=== PATIENT | male | born 1965 | race Caucasian/White ===

== ENCOUNTER 2021-10-04 15:56 | Inpatient (IN) ==
--- NOTE | 2021-10-04 16:20 | Emergency Department Note ---
History of Present Illness General Chief complaint: Abdominal Pain Stated complaint: ABDOMINAL PAIN Time Seen by Provider: 10/04/21 16:10 Source: patient Mode of arrival: ambulatory Limitations: no limitations History of Present Illness Maximum Pain Intensity: 10 This patient is a 56-year-old male who presents to the emergency department from a local correctional facility for evaluation of abdominal pain. The patient reports that he has severe pain across his lower abdomen. Pain started fairly suddenly last night while he was laying in his bunk. The pain is more pronounced in the right lower abdomen. He rates the pain a 10/10. Pain is worse when he is eating or drinking and better when he is moving around. He states he has not had a bowel movement over the past 2 days. He did vomit twice today and states it was just bile. He has tried laxatives and Motrin without relief. Denies any history of similar symptoms. Home Medications Medication Instructions Recorded Confirmed Type apixaban 5 mg tablet (Eliquis) 5 mg PO BID 10/04/21 10/04/21 History cholecalciferol (vitamin D3) 25 25 mcg PO DAILY 10/04/21 10/04/21 History mcg (1,000 unit) tablet (Vitamin D3) levothyroxine 75 mcg tablet 75 mcg PO DAILY 10/04/21 10/04/21 History metoprolol tartrate 50 mg tablet 50 mg PO BID 10/04/21 10/04/21 History Allergies Allergy/AdvReac Type Severity Reaction Status Date / Time No Known Allergies Allergy Unverified 10/04/21 17:03 Past Med/Surg History Medical History Hypothyroidism Surgical History (Updated 10/04/21 @ 16:20 by Cassandra Elliott PA-C) No significant past surgical history Family History Other FH: throat cancer Social History Smoking Status: Never smoker Second Hand Exposure: No; Do You Dip or Chew Tobacco: No; Hx Alcohol Use: Yes Alcohol type: hard liquor Hx Substance Use: No Preferred Language: Tajik Communication Ability: Effective 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 Beliefs That Will Affect Care: None Current Living Situation: Other Current Living Situation Comment: Motility Count Other Information That Helps Us Care for You: No Feels Safe at Home: Yes Safety Concerns: Feels Safe At This Time Assistive Devices: None Review of Systems A total of 10 systems reviewed and were otherwise negative Physical Exam Vital Signs Vital Signs - 24 hr 10/04/21 15:58 10/04/21 16:39 10/04/21 17:57 Temperature 36.5 C Temperature Source Temporal Artery Scan Pulse Rate 54 L Pulse Rate [Right Finger] 60 Respiratory Rate 18 16 Respiratory Effort / Characteristics Non-Labored Respiratory Depth Normal Respiratory Pattern Regular Blood Pressure 146/98 H Blood Pressure [Right Arm] 149/78 H Blood Pressure Mean 114 Blood Pressure Mean [Right Arm] 101 Pulse Oximetry 97 98 Oxygen Delivery Method Room Air Room Air Room Air Sepsis Recent Fever Within 48 Hours No Sepsis New/Unexplained Change in Mental Status No Sepsis Action Taken by Nursing No Action Required VITALS: Vitals are noted on the nurse's note and reviewed by myself. GENERAL: This is a 56-year-old male, in no acute distress, well-developed well- nourished. SKIN: The skin was without rashes. EARS: External auditory canals clear, tympanic membranes pearly raymond without erythema or effusion bilaterally. EYES: Pupils equal round and reactive to light and accommodation. MOUTH: Mucous membranes moist. Tonsils are not enlarged. Pharynx without erythema or exudate. NECK: Supple without nuchal rigidity. No lymphadenopathy. HEART: Regular rate and rhythm without murmurs gallops or rubs. LUNGS: Clear to auscultation bilaterally without wheezes, rales or rhonchi. No retractions or accessory muscle use. ABDOMEN: Positive bowel sounds x 4. Tenderness to palpation in the right lower quadrant with guarding. NEURO: Patient was alert and oriented to person place and time. Course Consultations Consultation #1: Dr. Wilcox - general surgery Administered Medications Acetaminophen (Ofirmev) 1,000 mg in 100 mls @ 400 mls/hr IV Q8H PRN PRN Reason: Pain or Fever Stop: 10/07/21 22:31 Last Infusion: 10/04/21 23:41 Dose: 0 mls/hr Documented by: [id number] Admin: 10/04/21 23:12 Dose: 400 mls/hr Documented by: [id number] Lactated Ringer's (Lr) 1,000 mls @ 80 mls/hr IV .[id number] MIRIAM Stop: 11/03/21 22:31 Last Admin: 10/04/21 23:39 Dose: 80 mls/hr Documented by: [id number] Piperacillin Sod/Tazobactam (Sod 3.375 gm/ Dextrose) 115 mls @ 28.75 mls/hr IV Q8H [facility]; Protocol Stop: 10/15/21 00:00 Last Admin: 10/04/21 23:46 Dose: 28.8 mls/hr Documented by: [id number] Famotidine 20 mg/ Syringe 5 mls @ 2.5 mls/min IV Q12H [facility] Stop: 11/03/21 22:59 Last Admin: 10/04/21 23:07 Dose: 2.5 mls/min Documented by: [id number] Discontinued Medications Hydralazine HCl (Hydralazine Hcl 20 Mg/Ml Vial) 10 mg IV NOW ONE Stop: 10/04/21 23:05 Last Admin: 10/04/21 23:46 Dose: Not Given Documented by: [id number] Hydromorphone HCl (Hydromorphone Inj 1 Mg/Ml Syringe) 1 mg IV NOW STA Stop: 10/04/21 20:19 Last Admin: 10/04/21 21:32 Dose: Not Given Documented by: [id number] Sodium Chloride (Nss 1000ml) 1,000 mls @ 999 mls/hr IV .Q1H1M ONE Stop: 10/04/21 17:24 Last Infusion: 10/04/21 18:18 Dose: 0 mls/hr Documented by: [id number] Admin: 10/04/21 16:46 Dose: 999 mls/hr Documented by: [id number] Piperacillin Sod/Tazobactam (Sod 3.375 gm/ Dextrose) 100 ml in 115 mls @ 230 mls/hr IV NOW STA Stop: 10/04/21 18:40 Last Infusion: 10/04/21 20:01 Dose: 0 mls/hr Documented by: [id number] Admin: 10/04/21 18:36 Dose: 230 mls/hr Documented by: [id number] Ioversol (Optiray 320 100ml) 94 ml IV ONCE ONE Stop: 10/04/21 17:46 Last Admin: 10/04/21 17:48 Dose: 94 ml Documented by: [id number] Ketorolac Tromethamine (Ketorolac Tromethamine 15 Mg/Ml Vial) 15 mg IV NOW ONE Stop: 10/04/21 20:37 Last Admin: 10/04/21 21:32 Dose: 15 mg Documented by: [id number] Morphine Sulfate (Morphine Sulfate 4 Mg/Ml 1 Ml Carp\Vial) 4 mg IV NOW STA Stop: 10/04/21 18:12 Last Admin: 10/04/21 18:28 Dose: 4 mg Documented by: [id number] Ondansetron HCl (Ondansetron Inj 2 Mg/Ml 2 Ml Vial) 4 mg IV NOW STA Stop: 10/04/21 18:12 Last Admin: 10/04/21 18:28 Dose: 4 mg Documented by: [id number] Medical Decision Making Differential Diagnosis Appendicitis, testicular torsion, infections, diverticulitis, UTI, obstruction, mesenteric ischemia, aortic pathology, inflammatory bowel disease, renal colic, PUD, pancreatitis, biliary pathology, hernia, volvulus, constipation, as well as other pathologies. Home Medications Current Medication List: was personally reviewed by me Laboratory Data Attestation: I reviewed the patient's lab results. Result diagrams: 10/04/21 16:36 10/04/21 16:36 Lab Results 10/04/21 10/04/21 10/04/21 Range/Units 16:36 16:36 19:01 WBC 11.03 H (4.8-10.8) K/uL RBC 5.25 (4.7-6.1) M/uL Hgb 16.1 (14.0-18.0) g/dL Hct 45.2 (42-52) % MCV 86.1 (80-100) fL MCH 30.7 (25-34) pg MCHC 35.6 (32-36) g/dL RDW Std Deviation 40.1 (36.4-46.3) fL RDW Coeff of Rosa 12.6 (11.5-14.5) % Plt Count 178 (130-400) K/uL MPV 11.2 H (7.4-10.4) fL Immature Gran % (Auto) 0.2 % Neut % (Auto) 87.0 % Lymph % (Auto) 9.3 % Hettinger % (Auto) 3.3 % Eos % (Auto) 0.0 % Baso % (Auto) 0.2 % Neut # (Auto) 9.60 H (1.4-6.5) K/uL Lymph # (Auto) 1.03 L (1.2-3.4) K/uL Hettinger # (Auto) 0.36 (0.11-0.59) K/uL Eos # (Auto) 0.00 (0-0.5) K/uL Baso # (Auto) 0.02 (0-0.2) K/uL Immature Gran # (Auto) 0.02 (0.00-0.02) K/uL Sodium 136 (136-145) mmol/L Potassium 4.2 (3.5-5.1) mmol/L Chloride 101 (98-107) mmol/L Carbon Dioxide 26 (21-32) mmol/L Anion Gap 9 (3-11) BUN 12 (6-23) mg/dl Creatinine 0.94 (0.6-1.4) mg/dl Est Cr Clr Drug Dosing 100.6 ml/min Est GFR ( Amer) 105.4 ml/min Est GFR (Non-Af Amer) 90.9 ml/min BUN/Creatinine Ratio 12.8 (10-20) Glucose 106 H (70-99(Fasting)) mg/dl Calcium 10.3 H (8.5-10.1) mg/dl Total Bilirubin 0.7 (0.2-1.0) mg/dl AST 17 (13-39) U/L ALT 12 (7-52) U/L Alkaline Phosphatase 90 (34-104) U/L Total Protein 7.9 (6.0-8.3) gm/dl Albumin 4.9 (3.4-5.0) gm/dl Globulin 3.0 (2.5-4.0) gm/dl Albumin/Globulin Ratio 1.6 (0.9-2) Lipase 11 (11-82) U/L SARS-CoV-2, RNA, NAAT NEGATIVE (NEGATIVE) Imaging Data Attestation: I personally reviewed and interpreted this imaging study as fol lows: Radiologist's Impression: Abdomen/Pelvis CT 10/04/21 16:23 CT abd pelvis IV con only CLINICAL HISTORY: Rlq pain . Nausea and vomiting COMPARISON STUDY: No previous studies for comparison. CT DOSE: 462.02 mGy.cm TECHNIQUE: Standard CT of the Abdomen and Pelvis was performed with IV contrast. A dose lowering technique was utilized adhering to the principles of ALARA. Contrast Volume: Optiray 320, 94 ml. The patient did not receive oral contrast. FINDINGS: Lung base: The lung bases are clear. Abdominal cavity: There is no evidence for abdominal mass, adenopathy or ascites. Liver: There is homogeneous attenuation of the liver parenchyma. There is no evidence for enhancing mass lesion. Spleen: There is homogeneous attenuation of the splenic parenchyma. There is no enhancing mass lesion. Pancreas: There is homogeneous attenuation of the pancreatic parenchyma. There is no evidence for mass lesion or peripancreatic fluid collection. Gall Bladder: There is cholelithiasis with gallbladder wall thickening and minimal pericholecystic edema present. The presence of acute cholecystitis cannot be excluded and gallbladder ultrasound is recommended for further evaluation. Adrenal glands: The adrenal glands are normal in size and attenuation. There is no evidence for enhancing mass lesion. Kidneys: There is homogeneous attenuation of the renal parenchyma bilaterally. There is no evidence for renal calculus or hydronephrosis. There is no evidence for enhancing mass. Bowel: The stomach is distended with fluid. There is again mild to moderate dilatation of the jejunum and proximal ileum with air-fluid levels present. This is to the level of the left lower quadrant with what appears to be a transition zone at approximately image 302. This may relate to adhesions and produce the partial bowel obstruction present. The remaining small bowel loops are relatively decompressed. material seen throughout the colon without dilatation or obstruction. There is mild fecal stasis. There is no evidence for mass lesion. There are no inflammatory changes present. There is no evidence for free air. Bladder: The bladder is within normal limits with no evidence for focal mass, calculus or diverticulum. : There is no evidence for pelvic mass or adenopathy. There is no evidence for pelvic ascites. Vasculature: There is no evidence for aneurysmal dilatation of the abdominal aorta. Mild atherosclerotic calcification is present. Osseous structures: There is no acute osseous pathology. Degenerative changes are seen within the spine. IMPRESSION: 1. Evidence for partial small bowel obstruction in the region of the left lower quadrant as described above. The findings are most likely related to adhesions. 2. Cholelithiasis with wall thickening and middle pericholecystic edema. The presence of cholecystitis cannot be excluded and gallbladder ultrasound is recommended for further evaluation. 3. Additional nonacute findings are delineated above. ACT 112: Negative or not required by law. Electronically signed by: Juni De Anda M.D. 10/04/2021 6:03 PM ECG Data Attestation: I personally reviewed and interpreted this ECG as follows: Indication: + vomiting Rate (beats per minute): 64 Rhythm: + normal sinus ECG Intervals/blocks: + Normal QRS ECG ST segments: + Normal ST segments ECG Findings: + PVCs Comparison ECG Date: no prior available MDM Narrative Continuous assistant auditor: Order was placed for continuous assistant auditor. Patient was placed on the assistant auditor. Patient was noted to be in sinus bradycardia at an initial rate of 54 bpm. The patient is a 56-year-old male who presents today complaining of abdominal pain and vomiting. Labs revealed a minimal leukocytosis, no anemia or concerning electrolyte abnormalities. CT of the abdomen/pelvis was performed and showed evidence of both a small bowel obstruction as well as possible cholecystitis. Patient was given a dose of Zosyn. He received morphine and Zofran for pain and nausea. He was given IV fluids. NG tube was placed. General surgery was consulted and recommended medical admission with further work-up including HIDA scan to evaluate for acute cholecystitis. [facility] and agreed to evaluate the patient for further care. Impression & Plan Small bowel obstruction, Cholecystitis Discharge Plan Visit Data Chief Complaint: Abdominal Pain Stated Complaint: ABDOMINAL PAIN ED Provider: Pineda Arrington ED Midlevel Provider: Cassandra Elliott Discharge Problem: Small bowel obstruction, Cholecystitis Patient Disposition: Admitted As Inpatient Discharge Instructions Interventions: ED Discharge Assessment Last Done: 10/04/21 22:04
[2021-10-04] MEDS ORDERED: SODIUM CHLORIDE 0.9% 1000ML 1,000 ML IV ONE (16:24)
[2021-10-04 16:50] LABS: Basophils # (auto) 0.02 K/uL (0-0.2); Basophils % (auto) 0.2 %; Hematocrit (blood only) 45.2 % (42-52); Hemoglobin 16.1 g/dL (14.0-18.0); Immature Granulocytes # (auto) 0.02 K/uL (0.00-0.02); Immature Granulocytes % (auto) 0.2 %; Lymphocytes # (auto) 1.03 K/uL (1.2-3.4); Lymphocytes % (auto) 9.3 %; Mean Corpuscular Hemoglobin 30.7 pg (25-34); Mean Corpuscular Hgb Conc 35.6 g/dL (32-36); Mean Corpuscular Volume 86.1 fL (80-100); Mean Platelet Volume 11.2 fL (7.4-10.4); Monocytes # (auto) 0.36 K/uL (0.11-0.59); Monocytes % (auto) 3.3 %; Platelet Count 178 K/uL (130-400); RDW Coefficient of Variation 12.6 % (11.5-14.5); RDW Standard Deviation 40.1 fL (36.4-46.3); Red Blood Count 5.25 M/uL (4.7-6.1); White Blood Count 11.03 K/uL (4.8-10.8)
[2021-10-04 17:14] LABS: Albumin Globulin Ratio 1.6 (0.9-2); Albumin Level 4.9 gm/dl (3.4-5.0); BUN Creatinine Ratio 12.8 (10-20); Bilirubin,Total 0.7 mg/dl (0.2-1.0); Calcium 10.3 mg/dl (8.5-10.1); Creatinine Clr Calc Pharmacy 100.6 ml/min; Est GFR (African American) 105.4 ml/min; Est GFR (Non-African American) 90.9 ml/min; Potassium 4.2 mmol/L (3.5-5.1); Total Protein 7.9 gm/dl (6.0-8.3)
[2021-10-04] MEDS ORDERED: OPTIRAY 320 100ml IV ONE (17:45)
--- NOTE | 2021-10-04 18:05 | CT Scan Report ---
CT abd pelvis IV con only CLINICAL HISTORY: Rlq pain . Nausea and vomiting COMPARISON STUDY: No previous studies for comparison. CT DOSE: 462.02 mGy.cm TECHNIQUE: Standard CT of the Abdomen and Pelvis was performed with IV contrast. A dose lowering grady hnique was utilized adhering to the principles of ALARA. Contrast Volume: Optiray 320, 94 ml. The patient did not receive oral contrast. FINDINGS: Lung base: The lung bases are clear. Abdominal cavity: There is no evidence for abdominal mass, adenopathy or ascites. Liver: There is homogeneous attenuation of the liver parenchyma. There is no evidence for enhancing m ass lesion. Spleen: There is homogeneous attenuation of the splenic parenchyma. There is no enhancing mass lesion . Pancreas: There is homogeneous attenuation of the pancreatic parenchyma. There is no evidence for mas s lesion or peripancreatic fluid collection. Gall Bladder: There is cholelithiasis with gallbladder wall thickening and minimal pericholecystic ed curtis present. The presence of acute cholecystitis cannot be excluded and gallbladder ultrasound is rec ommended for further evaluation. Adrenal glands: The adrenal glands are normal in size and attenuation. There is no evidence for enhan cing mass lesion. Kidneys: There is homogeneous attenuation of the renal parenchyma bilaterally. There is no evidence f or renal calculus or hydronephrosis. There is no evidence for enhancing mass. Bowel: The stomach is distended with fluid. There is again mild to moderate dilatation of the jejunum and proximal ileum with air-fluid levels present. This is to the level of the left lower quadrant wi th what appears to be a transition zone at approximately image 302. This may relate to adhesions and produce the partial bowel obstruction present. The remaining small bowel loops are relatively decompr essed. material seen throughout the colon without dilatation or obstruction. There is mild fecal stasi s. There is no evidence for mass lesion. There are no inflammatory changes present. There is no evide nce for free air. Bladder: The bladder is within normal limits with no evidence for focal mass, calculus or diverticulu m. : There is no evidence for pelvic mass or adenopathy. There is no evidence for pelvic ascites. Vasculature: There is no evidence for aneurysmal dilatation of the abdominal aorta. Mild atherosclero tic calcification is present. Osseous structures: There is no acute osseous pathology. Degenerative changes are seen within the spi ne. IMPRESSION: 1. Evidence for partial small bowel obstruction in the region of the left lower quadrant as described above. The findings are most likely related to adhesions. 2. Cholelithiasis with wall thickening and middle pericholecystic edema. The presence of cholecystiti s cannot be excluded and gallbladder ultrasound is recommended for further evaluation. 3. Additional nonacute findings are delineated above. ACT 112: Negative or not required by law. Electronically signed by: Juni De Anda M.D. 10/04/2021 6:03 PM
[2021-10-04] MEDS ORDERED: PIPERACILLIN/TAZOBACTAM 3.375 GM in DEXTROSE 5% 100 ML/100 ML BAG IV STA (18:11)
[2021-10-04] MEDS ORDERED: MoRPHine SULFATE 4 MG/ML 1 ML CARP\\VIAL IV STA (18:11)
[2021-10-04] MEDS ORDERED: ONDANSETRON INJ 2 MG/ML 2 ML VIAL IV STA (18:11)
[2021-10-04] MEDS ORDERED: HYDROmorphone INJ 1 MG/ML SYRINGE IV STA (20:18)
[2021-10-04] MEDS ORDERED: KETOROLAC TROMETHAMINE 15 MG/ML VIAL IV ONE (20:36)
--- NOTE | 2021-10-04 20:44 | History & Physical Report ---
Date of Service October 04, 2021 Assessment & Plan (1) Small bowel obstruction: Plan: Small bowel obstruction left lower quadrant likely secondary to adhesions No history of surgeries or significant intra-abdominal infections Unclear etiology N.p.o. Zofran 4 mg IV every 6 hours as needed Famotidine 20 mg IV every 12 hours Cefepime 2 g IV every 12 hours LR at 80 mils per hour Acetaminophen 1 g IV every 8 hours as needed mild pain or fever Toradol 30 mg IV every 6 hours as needed moderate pain Morphine sulfate 4 mg IV every 3 hours as needed severe pain (2) Cholecystitis: Plan: We will attempt to get MRCP and/or HIDA scan if able to over the weekend (3) Hypertension: Plan: Hold metoprolol tartrate p.o. while n.p.o. Hydralazine 10 mg IV every 4 hours. Systolic blood pressure greater than 160 Of note, patient reports that he was briefly considered to have atrial fibrillation, and has not been on Eliquis for greater than 1 year (4) Hypothyroidism: Plan: For now hold levothyroxine 75 mcg daily while n.p.o. (5) Vitamin D deficiency: Plan: Hold 25 mcg daily supplement while n.p.o. History of Present Illness Chief Complaint: The patient presents to the emergency department with complaint of severe pain across his lower abdomen that began last evening Primary Care Provider: SAVANNAH [place] The patient is a 56-year-old male resident of [facility], with a past medical history including hypothyroidism, hypertension, previous concerns regarding possible atrial fibrillation which have since been discounted. He presents to the emergency department with symptoms as noted above. Work-up in the emergency department included a CT scan of abdomen pelvis which showed a partial small bowel obstruction left lower quadrant likely secondary to adhesions, and cholecystitis. Surgery was contacted by the ED, who requested that the patient be admitted to medical service. Allergies Allergy/AdvReac Type Severity Reaction Status Date / Time No Known Allergies Allergy Unverified 10/04/21 17:03 Home Medications Medication Instructions Recorded Confirmed Type apixaban 5 mg tablet (Eliquis) 5 mg PO BID 10/04/21 10/04/21 History cholecalciferol (vitamin D3) 25 25 mcg PO DAILY 10/04/21 10/04/21 History mcg (1,000 unit) tablet (Vitamin D3) levothyroxine 75 mcg tablet 75 mcg PO DAILY 10/04/21 10/04/21 History metoprolol tartrate 50 mg tablet 50 mg PO BID 10/04/21 10/04/21 History Past Med/Surg History Medical History (Updated 10/05/21 @ 02:57 by Emeka Mosher MD) Hypertension Hypothyroidism Vitamin D deficiency Surgical History (Updated 10/04/21 @ 16:20 by Cassandra Elliott PA-C) No significant past surgical history Family History Other FH: throat cancer Social History Smoking Status: Never smoker Second Hand Exposure: No; Do You Dip or Chew Tobacco: No; Hx Alcohol Use: Yes Alcohol type: hard liquor Hx Substance Use: No Preferred Language: Slovak Communication Ability: Effective 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 Beliefs That Will Affect Care: None Current Living Situation: Other Current Living Situation Comment: [facility] Other Information That Helps Us Care for You: No Feels Safe at Home: Yes Safety Concerns: Feels Safe At This Time Assistive Devices: None Review of Systems Review of Systems: The patient denies chest pain, palpitations, shortness of breath, dyspnea on exertion, cough, lower extremity swelling, sore throat, fevers, chills, sweats, vomiting, diarrhea, blood in urine or stool, dysuria, urinary frequency or urgency, lightheadedness, dizziness, headache, memory loss, loss of consciousness, rash, abnormal bruising or bleeding, imbalance, focal or generalized weakness, numbness or tingling in arms or legs, generalized arthralgias or myalgias, back or neck pain, or night sweats. The review of systems is otherwise negative other than for that already noted above, and at least 10 systems have been reviewed. Physical Exam Physical Exam: The patient is awake, alert and oriented 3, well developed and well nourished, normocephalic and atraumatic, lying in bed and in no acute distress. HEENT--PERRL, EOMI, mucous membranes and oropharynx dry. Neck--supple. No JVD. No bruits. Thyroid normal, trachea midline, no adenopathy. Heart--normal S1 and S2. No murmurs, rubs or gallops. Lungs--clear bilaterally, no respiratory distress, no accessory muscle use. Abdomen--trace bowel sounds. Tender across mid and lower abdomen. Mildly distended. Extremities--no cyanosis or clubbing. No edema. Dermatologic--normal skin turgor, normal color, no abnormal lymph nodes, no rash. Neurologic--cranial nerves II through XII grossly intact. Rheumatologic--normal range of motion. Psychiatric--normal affect. Results & Data Results & Data ([facility]) Vital Signs (Past 12 Hours) Vital Signs Temp Pulse Pulse Resp BP BP Pulse Ox 10/04/21 17:57 60 16 149/78 H 98 10/04/21 15:58 36.5 C 54 L 18 146/98 H 97 Laboratory Results Laboratory Results WBC 11.03 K/uL (4.8-10.8) H 10/04/21 16:36 RBC 5.25 M/uL (4.7-6.1) 10/04/21 16:36 Hgb 16.1 g/dL (14.0-18.0) 10/04/21 16:36 Hct 45.2 % (42-52) 10/04/21 16:36 MCV 86.1 fL (80-100) 10/04/21 16:36 MCH 30.7 pg (25-34) 10/04/21 16:36 MCHC 35.6 g/dL (32-36) 10/04/21 16:36 RDW Std Deviation 40.1 fL (36.4-46.3) 10/04/21 16:36 RDW Coeff of Rosa 12.6 % (11.5-14.5) 10/04/21 16:36 Plt Count 178 K/uL (130-400) 10/04/21 16:36 MPV 11.2 fL (7.4-10.4) H 10/04/21 16:36 Immature Gran % (Auto) 0.2 % 10/04/21 16:36 Neut % (Auto) 87.0 % 10/04/21 16:36 Lymph % (Auto) 9.3 % 10/04/21 16:36 [place] % (Auto) 3.3 % 10/04/21 16:36 Eos % (Auto) 0.0 % 10/04/21 16:36 Baso % (Auto) 0.2 % 10/04/21 16:36 Neut # (Auto) 9.60 K/uL (1.4-6.5) H 10/04/21 16:36 Lymph # (Auto) 1.03 K/uL (1.2-3.4) L 10/04/21 16:36 [place] # (Auto) 0.36 K/uL (0.11-0.59) 10/04/21 16:36 Eos # (Auto) 0.00 K/uL (0-0.5) 10/04/21 16:36 Baso # (Auto) 0.02 K/uL (0-0.2) 10/04/21 16:36 Immature Gran # (Auto) 0.02 K/uL (0.00-0.02) 10/04/21 16:36 Sodium 136 mmol/L (136-145) 10/04/21 16:36 Potassium 4.2 mmol/L (3.5-5.1) 10/04/21 16:36 Chloride 101 mmol/L (98-107) 10/04/21 16:36 Carbon Dioxide 26 mmol/L (21-32) 10/04/21 16:36 Anion Gap 9 (3-11) 10/04/21 16:36 BUN 12 mg/dl (6-23) 10/04/21 16:36 Creatinine 0.94 mg/dl (0.6-1.4) 10/04/21 16:36 Est Cr Clr Drug Dosing 100.6 ml/min 10/04/21 16:36 Est GFR ( Amer) 105.4 ml/min 10/04/21 16:36 Est GFR (Non-Af Amer) 90.9 ml/min 10/04/21 16:36 BUN/Creatinine Ratio 12.8 (10-20) 10/04/21 16:36 Glucose 106 mg/dl (70-99(Fasting)) H 10/04/21 16:36 Calcium 10.3 mg/dl (8.5-10.1) H 10/04/21 16:36 Total Bilirubin 0.7 mg/dl (0.2-1.0) 10/04/21 16:36 AST 17 U/L (13-39) 10/04/21 16:36 ALT 12 U/L (7-52) 10/04/21 16:36 Alkaline Phosphatase 90 U/L (34-104) 10/04/21 16:36 Total Protein 7.9 gm/dl (6.0-8.3) 10/04/21 16:36 Albumin 4.9 gm/dl (3.4-5.0) 10/04/21 16:36 Globulin 3.0 gm/dl (2.5-4.0) 10/04/21 16:36 Albumin/Globulin Ratio 1.6 (0.9-2) 10/04/21 16:36 Lipase 11 U/L (11-82) 10/04/21 16:36 Urine Color Yellow 10/04/21 21:34 Urine Appearance Clear (Clear) 10/04/21 21:34 Urine pH 8.5 (4.5-7.5) H 10/04/21 21:34 Ur Specific Otho > 1.045 (1.000-1.030) H 10/04/21 21:34 Urine Protein Negative (Negative) 10/04/21 21:34 Urine Glucose (UA) Negative (Negative) 10/04/21 21:34 Urine Ketones Trace (Negative) H 10/04/21 21:34 Urine Blood Negative (Negative) 10/04/21 21:34 Urine Nitrite Negative (Negative) 10/04/21 21:34 Urine Bilirubin Negative (Negative) 10/04/21 21:34 Urine Urobilinogen Negative (Negative) 10/04/21 21:34 Ur Leukocyte Esterase Negative (Negative) 10/04/21 21:34 SARS-CoV-2, RNA, NAAT NEGATIVE (NEGATIVE) 10/04/21 19:01 Impressions Abdomen/Pelvis CT 10/04/21 16:23 CT abd pelvis IV con only CLINICAL HISTORY: Rlq pain . Nausea and vomiting COMPARISON STUDY: No previous studies for comparison. CT DOSE: 462.02 mGy.cm TECHNIQUE: Standard CT of the Abdomen and Pelvis was performed with IV contrast. A dose lowering technique was utilized adhering to the principles of ALARA. Contrast Volume: Optiray 320, 94 ml. The patient did not receive oral contrast. FINDINGS: Lung base: The lung bases are clear. Abdominal cavity: There is no evidence for abdominal mass, adenopathy or ascites. Liver: There is homogeneous attenuation of the liver parenchyma. There is no evidence for enhancing mass lesion. Spleen: There is homogeneous attenuation of the splenic parenchyma. There is no enhancing mass lesion. Pancreas: There is homogeneous attenuation of the pancreatic parenchyma. There is no evidence for mass lesion or peripancreatic fluid collection. Gall Bladder: There is cholelithiasis with gallbladder wall thickening and minimal pericholecystic edema present. The presence of acute cholecystitis cannot be excluded and gallbladder ultrasound is recommended for further evaluation. Adrenal glands: The adrenal glands are normal in size and attenuation. There is no evidence for enhancing mass lesion. Kidneys: There is homogeneous attenuation of the renal parenchyma bilaterally. There is no evidence for renal calculus or hydronephrosis. There is no evidence for enhancing mass. Bowel: The stomach is distended with fluid. There is again mild to moderate dilatation of the jejunum and proximal ileum with air-fluid levels present. This is to the level of the left lower quadrant with what appears to be a transition zone at approximately image 302. This may relate to adhesions and produce the partial bowel obstruction present. The remaining small bowel loops are relatively decompressed. material seen throughout the colon without dilatation or obstruction. Th ere is mild fecal stasis. There is no evidence for mass lesion. There are no inflammatory changes present. There is no evidence for free air. Bladder: The bladder is within normal limits with no evidence for focal mass, calculus or diverticulum. : There is no evidence for pelvic mass or adenopathy. There is no evidence for pelvic ascites. Vasculature: There is no evidence for aneurysmal dilatation of the abdominal aorta. Mild atherosclerotic calcification is present. Osseous structures: There is no acute osseous pathology. Degenerative changes are seen within the spine. IMPRESSION: 1. Evidence for partial small bowel obstruction in the region of the left lower quadrant as described above. The findings are most likely related to adhesions. 2. Cholelithiasis with wall thickening and middle pericholecystic edema. The presence of cholecystitis cannot be excluded and gallbladder ultrasound is recommended for further evaluation. 3. Additional nonacute findings are delineated above. ACT 112: Negative or not required by law. Electronically signed by: Juni De Anda M.D. 10/04/2021 6:03 PM Code Status & VTE Plan Code Status Full code VTE Prophylaxis Plan VTE Prophylaxis will be ordered: Yes PG Care Time/CCT Total # of Minutes Spent Total Time Spent with Patient: Total time spent is greater than 50% in coordination of care (as documented) at patient's floor/unit and/or counseling patient: Coding Level of Care Code 37870 Initial Inpt Care Lvl 3 Diagnoses Hypertension I10 Vitamin D deficiency E55.9 Small bowel obstruction K56.609 Cholecystitis K81.9 Hypothyroidism E03.9
[2021-10-04 21:54] LABS: Appearance Urine Clear (Clear); Bilirubin Urine Negative (Negative); Blood Urine Negative (Negative); Color Urine Yellow; Glucose Urine UA Negative (Negative); Ketones Urine Trace (Negative); Leukocyte Esterase Urine Negative (Negative); Nitrite Urine Negative (Negative); Protein Urine Negative (Negative); Specific Gravity Urine > 1.045 (1.000-1.030); Urobilinogen Urine Negative (Negative); pH Urine 8.5 (4.5-7.5)
[2021-10-04] MEDS ORDERED: hydrALAZINE HCL 20 MG/ML VIAL IV ONE (23:04)
[2021-10-04] MEDS: FAMOTIDINE 20 MG in SYRINGE 3 ML IV SCH (23:07)
[2021-10-04] MEDS: ACETAMINOPHEN 1,000 MG/100 ML VIAL IV PRN (23:12)
[2021-10-04] MEDS: LACTATED RINGER'S 1,000 ML IV SCH (23:39)
[2021-10-04] MEDS: PIPERACILLIN/TAZOBACTAM 3.375 GM in DEXTROSE 5% 100 ML IV SCH (23:46)
[2021-10-05] MEDS ORDERED: METOPROLOL TARTRATE 1 MG/ML VIAL IV SCH
[2021-10-05] MEDS: ONDANSETRON INJ 2 MG/ML 2 ML VIAL IV PRN ×3 (02:45→20:16)
[2021-10-05] MEDS: KETOROLAC 30 MG/ML VIAL IV PRN ×3 (02:45→20:19)
[2021-10-05] MEDS: MoRPHine SULFATE 4 MG/ML 1 ML CARP\\VIAL IV PRN ×2 (05:36→14:05)
--- NOTE | 2021-10-05 07:35 | Hospitalist Progress Note ---
Date of Service October 05, 2021 Assessment & Plan (1) Small bowel obstruction: Plan: SBO Unclear etio ?2/[address]: Partial small bowel obstruction and left lower quadrant suspect due to adhesions. Cholelithiasis with wall thickening and middle samira cholecystic edema, cholecystitis cannot be excluded. Recommended for gallbladder ultrasound. - Small bowel obstruction left lower quadrant likely secondary to adhesions - No history of surgeries or significant intra-abdominal infections - N.p.o. - Zofran 4mg IV Q6H PRN -Famotidine 20 mg IV every 12 hours -Cefepime 2 g IV every 12 hours -LR at 80 mils per hour -Acetaminophen 1 g IV every 8 hours as needed mild pain or fever -Toradol 30 mg IV every 6 hours as needed moderate pain -Morphine sulfate 4 mg IV every 3 hours as needed severe pain (2) Cholecystitis: Plan: CT as noted aboveright upper quadrant tenderness, mild leukocytosis to 11.3. No transaminitis or hyperbilirubinemia Discussed with surgery by admitting provider. Recommended for admission to medicine service, imaging as below Gallbladder ultrasound pending HIDA scan unable to be performed until Thursday Surgical consult after results above (3) Bradycardia: Plan: Bradycardia with heart rate as low as 30s overnight, patient asymptomatic On telemetry review concern for some dropped QRS complexes without MI interval extension suspicious for Mobitz 2 type II heart block Metoprolol was held on patient admission was not given overnight Cardiology consulted EKG/strips reviewed. Unable to completely distinguish Mobitz 1 from 2 based on rhythm, but more suspicious for Mobitz 1 metoprolol was held on admission, discontinue this. (4) Hypertension: Plan: - Stop metoprolol tartrate, this was held on admission Hydralazine 10 mg IV every 4 hours. Systolic blood pressure greater than 160 No indication for adjunct antihypertensive at this time (5) Atrial fibrillation: Plan: Confirmed history of this with [facility] Patient has a history of paroxysmal A. fib Has been prescribed Eliquis and metoprolol for A. fib (previously reported metoprolol was for his thyroid this is incorrect) but patient takes his own med and cell and is very poorly compliant with these medications. While Eliquis is on order takes this rarely throughout the week. Metoprolol held for concern of heart block above - Of note, patient reports that he was briefly considered to have atrial fibrillation, and has not been on Eliquis for greater than 1 year. Called and reviewed with [facility], patient has a history of an episode of suspected A. fib and was recommended to be on metoprolol/Eliquis but is poorly compliant with medications. Per patient has not been in A. fib for over a year. Discussed with nursing staff, it is unclear from records if he had confirmed A. fib or not, or if it has ever recurred. [id number] of 1. Patient remains in sinus, will hold anticoagulation for now. If returns to A. fib will start heparin GTT bridging back to apixaban. (6) Hypothyroidism: Plan: Synthroid 75 mcg daily Repeat TSH/T4 pending By report patient thinks he was on metoprolol for an overactive thyroid versus atrial fibrillation but has not had this in over a year. History reconciled with [facility] above (7) Vitamin D deficiency: Plan: Hold 25 mcg daily supplement while n.p.o. Admission and Anticipated Discharge Date Admission Date: October 04, 2021 Subjective Seen at bedside. NG tube in place draining dark liquid. Patient reports continues to have intermittent stomach upset, but feels much better than when he came in denies any symptoms of lightheadedness, dizziness, orthostasis, chest pain, chest pressure, shortness of breath overnight. Mild right upper quadrant and epigastric abdominal tenderness at bedside, improved from prior. Denies change in bowel movements, denies white/jud colored bowel movements and reports bowel movements are generally brown to dark brown no diarrhea Review of Systems Review of Systems: All systems reviewed & are unremarkable except as noted in Subjective Physical Exam Physical Exam: General: A&Ox3. NAD. Cooperative. HEENT: Atraumatic, normocephalic. NGT in place. Pulm: CTAB A&P. -wheezes, -rales, -rhonchi. Symmetrical chest rise. No increase in work of breathing. No respiratory distress. Cardiac: Regular, bradycardic, -mrg. Radial pulses intact and symmetrical. Abdominal: Mild tenderness at right upper quadrant and epigastrium, soft. BS present. Extremities: Warm, dry, intact Results & Data Results & Data ([facility]) Vital Signs (Past 12 Hours) Vital Signs Temp Pulse Pulse Pulse Resp BP BP 10/05/21 07:09 44 L 18 145/76 H 10/05/21 03:18 37.0 C 42 L 18 157/89 H 10/05/21 00:55 36 L 18 146/77 H 10/04/21 23:43 157/84 H 10/04/21 22:50 172/91 H 10/04/21 22:35 37.3 C 48 L 18 170/91 H 10/04/21 22:29 45 L Pulse Ox 10/05/21 07:09 96 10/05/21 03:18 96 10/05/21 00:55 96 10/04/21 23:43 10/04/21 22:50 10/04/21 22:35 97 10/04/21 22:29 PG Care Time/CCT Total # of Minutes Spent Total Time Spent with Patient: Total time spent is greater than 50% in coordination of care (as documented) at patient's floor/unit and/or counseling patient: Coding Level of Care Code 38426 Subseq Hosp Care Lvl 2 Diagnoses Small bowel obstruction K56.609 Cholecystitis K81.9 Hypertension I10 Hypothyroidism E03.9 Vitamin D deficiency E55.9 Bradycardia R00.1 Atrial fibrillation I48.91
[2021-10-05] MEDS: PIPERACILLIN/TAZOBACTAM 3.375 GM in DEXTROSE 5% 100 ML IV SCH ×2 (08:07→16:36)
--- NOTE | 2021-10-05 09:35 | Cardiology Consultation ---
Date of Consultation October 05, 2021 Assessment & Plan (1) Heart block AV second degree: 1. This heart block: The best description of his heart block is 2-1. His current rhythm does not allow us to distinguish between a Mobitz 1 and Mobitz 2. He does have a narrow complex QRS which is more suggestive of Mobitz 1 conduction. He also reports a good exercise tolerance and I suspect that with activity his heart rate improves and his conduction improves. This is more consistent with AV jarek disease and less consistent with his Purkinje disease. In order to gain more confidence in this assessment, activity would be recommended. Unfortunately, he is shackled to the bed. At some point ambulation in the hallways would be recommended in order to monitor his conduction. If his conduction improves in his heart rate improves with activity, this is a benign process that only requires treatment in the presence of symptoms. According to the patient he was placed on metoprolol for a overactive thyroid. He is currently on thyroid supplementation. It is possible the metoprolol was continued for hypertension. In any event, with his degree of conduction disease and low heart rates as described it would seem reasonable to stop metoprolol in the absence of another indication. Hypertension could be more effectively treated with an Juan J inhibitor or amlodipine. 1. Discontinue metoprolol 2. Ambulation when able History of Present Illness Reason for Consultation: Bradycardia Requesting Physician: Meg Attending Physician: Rob Weaver MD History of Present Illness Patient is a 56-year-old inmate admitted for small-bowel obstruction who was noted to have bradycardia. Telemetry monitoring revealed episodes of AV block. Patient states that approximately 2 days ago he began have some symptoms of abdominal discomfort. At 1st he felt that this was simply gas pains. Was some concern among the inmates about some spoiled food. However his symptoms worsened and he noted some abdominal distention. He was brought to the emergency room and found to have a small bowel obstruction. Conservative approach was initiated with an NG tube. This morning he states that his abdominal symptoms are improved he feels that his distention is also better. Did not endorse symptoms diarrhea and in fact has been having normal stools. However, he did report some vomiting. According to the patient has a long history of bradycardia. He states that his heart rate is always been on the low side. He claims to have had exercise stress testing performed in the past and did not reach his target heart rate. In fact, he states his heart rate generally does not go over 100 beats per minute. He reports being an active individual who exercises regularly. Including 2 days ago he was exercising on a rowing machine and dogs when he is able. He has not report any symptoms associated with activity. He did not report any new limitations, limiting dyspnea or chest discomfort. He did not endorse symptoms of dizziness or lightheadedness. He states that he has passed out when he was drunk previously, but no spontaneous syncope. Allergies Allergy/AdvReac Type Severity Reaction Status Date / Time No Known Allergies Allergy Unverified 10/04/21 17:03 Home Medications Medication Instructions Recorded Confirmed Type apixaban 5 mg tablet (Eliquis) 5 mg PO BID 10/04/21 10/04/21 History cholecalciferol (vitamin D3) 25 25 mcg PO DAILY 10/04/21 10/04/21 History mcg (1,000 unit) tablet (Vitamin D3) levothyroxine 75 mcg tablet 75 mcg PO DAILY 10/04/21 10/04/21 History metoprolol tartrate 50 mg tablet 50 mg PO BID 10/04/21 10/04/21 History Patient History Medical History (Updated 10/05/21 @ 09:45 by James Orellana MD) Hypertension Hypothyroidism Vitamin D deficiency Surgical History (Updated 10/04/21 @ 16:20 by Cassandra Elliott PA-C) No significant past surgical history Family History Other FH: throat cancer Social History Smoking Status: Never smoker Second Hand Exposure: No; Do You Dip or Chew Tobacco: No; Hx Alcohol Use: Yes Alcohol type: hard liquor Hx Substance Use: No Preferred Language: Greenlandic Communication Ability: Effective Cobol Application Developer Required: No Beliefs That Will Affect Care: None Current Living Situation: Other Current Living Situation Comment: [facility] Other Information That Helps Us Care for You: No Feels Safe at Home: Yes Safety Concerns: Feels Safe At This Time Assistive Devices: None Review of Systems Review of Systems: Per HPI. Physical Exam Physical Exam: The patient is alert and oriented. Mood and affect appeared normal. He answered all questions appropriately. HEENT: Pupils are equal and reactive to light and accommodation. Extraocular movements are intact. The sclerae are anicteric. NG tube in place. Neuro: Cranial nerves intact Lungs: Clear to auscultation bilaterally. He has good air movement without use of accessory muscles. No rales wheezes or rhonchi. Cardiac: Heart demonstrates a regular rate and rhythm. Normal S1 and S2. No murmurs on examination. Pulses: The patient has palpable radial pulses bilaterally that are equal in intensity Abdomen: Nontender but mildly distended. Extremities: There was no evidence of hypoperfusion. There is no cyanosis or clubbing. There is no edema. Skin: Psoriatic rash on the right anterior tibial area Results & Data ([facility]) Vital Signs (Past 12 Hours) Vital Signs Temp Pulse Pulse Pulse Resp BP BP 10/05/21 07:09 44 L 18 145/76 H 10/05/21 03:18 37.0 C 42 L 18 157/89 H 10/05/21 00:55 36 L 18 146/77 H 10/04/21 23:43 157/84 H 10/04/21 22:50 172/91 H 10/04/21 22:35 37.3 C 48 L 18 170/91 H 10/04/21 22:29 45 L Pulse Ox 10/05/21 07:09 96 10/05/21 03:18 96 10/05/21 00:55 96 10/04/21 23:43 10/04/21 22:50 10/04/21 22:35 97 10/04/21 22:29 Laboratory Results Abnormal Lab Results 10/04/21 10/04/21 10/04/21 16:36 16:36 19:01 WBC 11.03 H RBC 5.25 Hgb 16.1 Hct 45.2 MCV 86.1 MCH 30.7 MCHC 35.6 RDW Std Deviation 40.1 RDW Coeff of Rosa 12.6 Plt Count 178 MPV 11.2 H Immature Gran % (Auto) 0.2 Neut % (Auto) 87.0 Lymph % (Auto) 9.3 [place] % (Auto) 3.3 Eos % (Auto) 0.0 Baso % (Auto) 0.2 Neut # (Auto) 9.60 H Lymph # (Auto) 1.03 L [place] # (Auto) 0.36 Eos # (Auto) 0.00 Baso # (Auto) 0.02 Immature Gran # (Auto) 0.02 Sodium 136 Potassium 4.2 Chloride 101 Carbon Dioxide 26 Anion Gap 9 BUN 12 Creatinine 0.94 Est Cr Clr Drug Dosing 100.6 Est GFR ( Amer) 105.4 Est GFR (Non-Af Amer) 90.9 BUN/Creatinine Ratio 12.8 Glucose 106 H Calcium 10.3 H Total Bilirubin 0.7 AST 17 ALT 12 Alkaline Phosphatase 90 Total Protein 7.9 Albumin 4.9 Globulin 3.0 Albumin/Globulin Ratio 1.6 Lipase 11 Urine Color Urine Appearance Urine pH Ur Specific [place] Urine Protein Urine Glucose (UA) Urine Ketones Urine Blood Urine Nitrite Urine Bilirubin Urine Urobilinogen Ur Leukocyte Esterase Nasal Screen MRSA (PCR) SARS-CoV-2, RNA, NAAT NEGATIVE 10/04/21 10/05/21 21:34 05:45 WBC RBC Hgb Hct MCV MCH MCHC RDW Std Deviation RDW Coeff of Rosa Plt Count MPV Immature Gran % (Auto) Neut % (Auto) Lymph % (Auto) [place] % (Auto) Eos % (Auto) Baso % (Auto) Neut # (Auto) Lymph # (Auto) [place] # (Auto) Eos # (Auto) Baso # (Auto) Immature Gran # (Auto) Sodium Potassium Chloride Carbon Dioxide Anion Gap BUN Creatinine Est Cr Clr Drug Dosing Est GFR ( Amer) Est GFR (Non-Af Amer) BUN/Creatinine Ratio Glucose Calcium Total Bilirubin AST ALT Alkaline Phosphatase Total Protein Albumin Globulin Albumin/Globulin Ratio Lipase Urine Color Yellow Urine Appearance Clear Urine pH 8.5 H Ur Specific [place] > 1.045 H Urine Protein Negative Urine Glucose (UA) Negative Urine Ketones Trace H Urine Blood Negative Urine Nitrite Negative Urine Bilirubin Negative Urine Urobilinogen Negative Ur Leukocyte Esterase Negative Nasal Screen MRSA (PCR) Negative SARS-CoV-2, RNA, NAAT Diagnostic Findings Abdominal CT revealed partial small-bowel obstruction. Possible cholecystitis. PG Care Time/CCT Total # of Minutes Spent Total Time Spent with Patient: Total time spent is greater than 50% in coordination of care (as documented) at patient's floor/unit and/or counseling patient: Coding Level of Care Code 76350 Inpt Consult Level 4 Diagnoses Heart block AV second degree I44.1
[2021-10-05 10:25] LABS: Lyme Ab IgG w/WB Rflx Negative (Negative); Lyme Ab IgM w/WB Rflx Negative (Negative)
--- NOTE | 2021-10-05 10:47 | Electrocardiogram Report ---
Test Reason : Blood Pressure : / mmHG Vent. Rate : 064 BPM Atrial Rate : 064 BPM P-R Int : 182 ms QRS Dur : 104 ms QT Int : 452 ms P-R-T Axes : 010 -33 -02 degrees QTc Int : 466 ms Sinus rhythm with sinus arrhythmia with occasional Premature ventricular complexes Left axis deviation Poor R wave progression, consider anterior [place] vs. lead placement vs. LVH Abnormal ECG No previous ECGs available Confirmed by James Orellana ([id number]) on 10/05/2021 10:47:19 AM Referred By: [facility] Confirmed By:Ady Orellana
[2021-10-05] MEDS: FAMOTIDINE 20 MG in SYRINGE 3 ML IV SCH ×2 (12:46→23:28)
[2021-10-05] MEDS: LACTATED RINGER'S 1,000 ML IV SCH ×2 (12:46→23:27)
--- NOTE | 2021-10-05 19:17 | Ultrasound Report ---
US gallbladder CLINICAL HISTORY: ?shayy TECHNIQUE: Multiple real-time sonographic images of the right upper quadrant were obtained. Comparison: Comparison is made to CT abdomen pelvis 10/04/2021 FINDINGS: The liver is diffusely homogenous with normal contour and echogenicity. No focal mass lesions are se en. No intrahepatic ductal dilatation is seen. The gallbladder is suboptimally evaluated due to i ncreased bowel gas. The gallbladder wall appears thickened measuring 5 mm. No definite visualization of stones. Sanders's sign cannot be assessed as the patient received pain medication. The common duct measures 0.3 cm in diameter at the level of the hepatic artery. The visualized portions of the pancr eas appear normal. The right kidney shows normal echogenicity, cortical thickness and renal contour. The right kidney sh ows no evidence of hydronephrosis or mass. No ascites or free fluid is seen in Duong's pouch. IMPRESSION: Limited evaluation. Gallbladder wall thickening is seen. Sonographic Sanders's sign is clinical. In th e appropriate setting, findings are suggestive of acute cholecystitis. If clinical uncertainty remain s, HIDA study can be performed. ACT 112: Negative or not required by law. Electronically signed by: Darrick Desouza M.D. 10/05/2021 7:16 PM
[2021-10-06] MEDS: PIPERACILLIN/TAZOBACTAM 3.375 GM in DEXTROSE 5% 100 ML IV SCH ×4 (00:45→23:43)
[2021-10-06] MEDS: MoRPHine SULFATE 4 MG/ML 1 ML CARP\\VIAL IV PRN ×5 (05:08→22:21)
--- NOTE | 2021-10-06 07:20 | Hospitalist Progress Note ---
Date of Service October 06, 2021 Assessment & Plan (1) Small bowel obstruction: Plan: SBO Unclear etio ?2/2 Adhesions vs acute inflammation w/ cholecystitis - Serial KUB in AM CT: Partial small bowel obstruction and left lower quadrant suspect due to adhesions. Cholelithiasis with wall thickening and middle samira cholecystic edema, cholecystitis cannot be excluded. Recommended for gallbladder ultrasound. - GB US: Limited evaluation. Gallbladder wall thickening is seen. Sonographic Sanders's sign is clinical. In the appropriate setting, findings are suggestive of acute cholecystitis. If clinical uncertainty remains, HIDA study can be performed. - Tbili normal, AST/ALT/AlkPh normal - Small bowel obstruction left lower quadrant - No history of surgeries or significant intra-abdominal infections - N.p.o. - Zofran 4mg IV Q6H PRN -Famotidine 20 mg IV every 12 hours -Cefepime 2 g IV every 12 hours -LR at 80 mils per hour -Acetaminophen 1 g IV every 8 hours as needed mild pain or fever -Toradol 30 mg IV every 6 hours as needed moderate pain -Morphine sulfate 4 mg IV every 3 hours as needed severe pain (2) Cholecystitis: Plan: CT as noted aboveright upper quadrant tenderness, mild leukocytosis to 11.3. No transaminitis or hyperbilirubinemia Discussed with surgery by admitting provider. Recommended for admission to medicine service Gallbladder ultrasound as noted - Surgery consulted for cholecystectomy. Discussed with surgery, recommend pursuing HIDA scan tomorrow and deferring cholecystectomy until results available. Ordered for Thursday. (3) Bradycardia: Plan: Bradycardia with heart rate as low as 30s overnight, patient asymptomatic On telemetry review concern for some dropped QRS complexes without [place] interval extension suspicious for 2:1 Mobitz 2 type II heart block Metoprolol held indefinitely Cardiology consulted EKG/strips reviewed. Unable to completely distinguish Mobitz 1 from 2 based on rhythm, but more suspicious for Mobitz 1 without significant purkinje disease. Hold MTP indefinitely, would ambulate as able and suspect conduction will improve with rate. Follow for clinical sx or pauses >2.5s - Lyme serology negative (4) Hypertension: Plan: - Stop metoprolol tartrate, this was held on admission - Hydralazine 10 mg IV every 4 hours. Systolic blood pressure greater than 160 No indication for adjunct antihypertensive at this time (5) Atrial fibrillation: Plan: Confirmed history of this with [facility] [place] Patient has a history of paroxysmal A. fib Has been prescribed Eliquis and metoprolol for A. fib (previously reported metoprolol was for his thyroid this is incorrect) but patient takes his own med and cell and is very poorly compliant with these medications. While Eliquis is on order takes this rarely throughout the week. Metoprolol held for concern of heart block above - Of note, patient reports that he was briefly considered to have atrial fibrillation in the setting of acute Lyme disease which was treated and has not been on Eliquis for greater than 1 year. Called and reviewed with [facility], patient has a history of an episode of suspected A. fib and was recommended to be on metoprolol/Eliquis but is poorly compliant with medications. Per patient has not been in A. fib for over a year, and patient per records seems to have been regular for the last year. Discussed with nursing staff, no EKG to confirmed A. fib or not, or if it has ever recurred. [id number] of 1. Does report that he has not had any confirmed A. fib outside of the initial episode, and that was thought to be provoked in the setting of Lyme disease. He also reports that even if strongly recommended he does not intend to take anticoagulation as it makes him feel poorly. At this point given single episode, [id number] 1, and sinus rhythm will defer anticoagulation but patient is agreeable to mobile telemetry once discharged to quantify A. fib burden if occult. (6) Hypothyroidism: Plan: Synthroid 75 mcg daily Repeat TSH normal (7) Vitamin D deficiency: Plan: Hold 25 mcg daily supplement while n.p.o. Admission and Anticipated Discharge Date Admission Date: October 04, 2021 Subjective Seen at bedside. Continues to have increased output, coke colored with slightly green froth into NGT. Patient reports this actually seems worse after his morphine, discussed potential for more seen to worsen ileus/obstruction and to only use if needed for breakthrough and to use Tylenol/Toradol first. Patient agreeable to this. Does not have right upper quadrant pain today. Does continue to have some low midline abdominal pain and bloating. No fever/chills/sweats today. Reviewed results with patient, pending HIDA scan which cannot be done until tomorrow. Patient agreeable to this. Also revisited patient's A. fib. Does report that he has not had any confirmed A. fib outside of the initial episode, and that was thought to be provoked in the setting of Lyme disease. He also reports that even if strongly recommended he does not intend to take anticoagulation as it makes him feel poorly. At this point given single episode, [id number], and sinus observed over the last year will defer anticoagulation but patient is agreeable to mobile telemetry once discharged to quantify A. fib burden if occult. Review of Systems Review of Systems: All systems reviewed & are unremarkable except as noted in Subjective Physical Exam Physical Exam: General: A&Ox3. NAD. Cooperative. HEENT: Atraumatic, normocephalic. NGT in placecoke colored drainage with slight green froth. Pulm: CTAB A&P. -wheezes, -rales, -rhonchi. Symmetrical chest rise. No increase in work of breathing. No respiratory distress. Cardiac: Regular, bradycardic, -mrg. Radial pulses intact and symmetrical. Abdominal: No right upper quadrant tenderness today. Does have distention and bloating discomfort in lower abdomen bilaterally without guarding or rebound BS present. Extremities: Warm, dry, intact Results & Data Results & Data ([facility]) Vital Signs (Past 12 Hours) Vital Signs Temp Pulse Pulse Resp BP Pulse Ox 10/06/21 03:19 37.2 C 43 L 20 149/82 H 96 10/06/21 00:24 37.5 C 53 L 18 144/89 H 94 10/05/21 22:19 59 L PG Care Time/CCT Total # of Minutes Spent Total Time Spent with Patient: Total time spent is greater than 50% in coordination of care (as documented) at patient's floor/unit and/or counseling patient: Coding Level of Care Code 36910 Subseq Hosp Care Lvl 2 Diagnoses Small bowel obstruction K56.609 Cholecystitis K81.9 Bradycardia R00.1 Hypertension I10 Atrial fibrillation I48.91 Hypothyroidism E03.9 Vitamin D deficiency E55.9
[2021-10-06 07:35] LABS: Basophils # (auto) 0.01 K/uL (0-0.2); Basophils % (auto) 0.2 %; Eosinophils # (auto) 0.13 K/uL (0-0.5); Eosinophils % (auto) 2.3 %; Hematocrit (blood only) 44.2 % (42-52); Hemoglobin 15.1 g/dL (14.0-18.0); Immature Granulocytes # (auto) 0.01 K/uL (0.00-0.02); Immature Granulocytes % (auto) 0.2 %; Lymphocytes # (auto) 1.21 K/uL (1.2-3.4); Mean Corpuscular Hemoglobin 29.6 pg (25-34); Mean Corpuscular Hgb Conc 34.2 g/dL (32-36); Mean Corpuscular Volume 86.7 fL (80-100); Mean Platelet Volume 11.5 fL (7.4-10.4); Monocytes # (auto) 0.79 K/uL (0.11-0.59); Monocytes % (auto) 13.7 %; Neutrophils % (auto) 62.6 %; Platelet Count 143 K/uL (130-400); RDW Coefficient of Variation 12.9 % (11.5-14.5); RDW Standard Deviation 41.3 fL (36.4-46.3); White Blood Count 5.75 K/uL (4.8-10.8)
[2021-10-06 08:04] LABS: Albumin Globulin Ratio 1.6 (0.9-2); Albumin Level 3.9 gm/dl (3.4-5.0); BUN Creatinine Ratio 17.5 (10-20); Bilirubin,Total 1.1 mg/dl (0.2-1.0); Calcium 8.5 mg/dl (8.5-10.1); Creatinine Clr Calc Pharmacy 90.5 ml/min; Est GFR (African American) 94.3 ml/min; Est GFR (Non-African American) 81.4 ml/min; Globulin 2.5 gm/dl (2.5-4.0); Total Protein 6.4 gm/dl (6.0-8.3)
[2021-10-06] MEDS: FAMOTIDINE 20 MG in SYRINGE 3 ML IV SCH ×2 (08:36→22:21)
--- NOTE | 2021-10-06 12:30 | Electrocardiogram Report ---
Test Reason : Blood Pressure : / mmHG Vent. Rate : 047 BPM Atrial Rate : 047 BPM P-R Int : 176 ms QRS Dur : 106 ms QT Int : 480 ms P-R-T Axes : 027 -38 011 degrees QTc Int : 424 ms Sinus bradycardia Left axis deviation Abnormal ECG When compared with ECG of 04-OCT-2021 19:04, Premature ventricular complexes are no longer Present Confirmed by James Orellana ([id number]) on 10/06/2021 12:29:59 PM Referred By: [facility] Confirmed By:Ady Orellana
[2021-10-06] MEDS: LACTATED RINGER'S 1,000 ML IV SCH (13:01)
--- NOTE | 2021-10-06 13:59 | Surgery Consultation ---
Date of Consultation October 06, 2021 Assessment & Plan (1) Cholecystitis: HIDA scan pending IV abx IVF (2) Small bowel obstruction: ngt strange presentation no peritoneal signs ? related to gallbladder History of Present Illness Attending Physician: Rob Weaver MD History of Present Illness This patient is a 56-year-old male who presened to the emergency department from a local correctional facility for evaluation of abdominal pain. The patient reported that he had severe pain across his lower abdomen. The pain is more pronounced in the right lower abdomen and is worse when he is eating. He states he has not had a bowel movement over the past 2 days. He did vomit twice today and states it was just bile. He has tried laxatives and Motrin without relief. Denies any history of similar symptoms Allergies Allergy/AdvReac Type Severity Reaction Status Date / Time No Known Allergies Allergy Unverified 10/04/21 17:03 Home Medications Medication Instructions Recorded Confirmed Type apixaban 5 mg tablet (Eliquis) 5 mg PO BID 10/04/21 10/04/21 History cholecalciferol (vitamin D3) 25 25 mcg PO DAILY 10/04/21 10/04/21 History mcg (1,000 unit) tablet (Vitamin D3) levothyroxine 75 mcg tablet 75 mcg PO DAILY 10/04/21 10/04/21 History metoprolol tartrate 50 mg tablet 50 mg PO BID 10/04/21 10/04/21 History Patient History Medical History (Updated 10/05/21 @ 12:54 by Rob Weaver MD) Hypertension Hypothyroidism Vitamin D deficiency Surgical History (Updated 10/04/21 @ 16:20 by Cassandra Elliott PA-C) No significant past surgical history Family History Other FH: throat cancer Social History Smoking Status: Never smoker Second Hand Exposure: No; Do You Dip or Chew Tobacco: No; Hx Alcohol Use: Yes Alcohol type: hard liquor Hx Substance Use: No Preferred Language: Greenlandic Communication Ability: Effective Circus Rider Required: No Beliefs That Will Affect Care: None Current Living Situation: Other Current Living Situation Comment: [facility] Other Information That Helps Us Care for You: No Feels Safe at Home: Yes Safety Concerns: Feels Safe At This Time Assistive Devices: None Review of Systems Constitutional: no fever and no chills Eyes: no problem reported Ear, Nose, Mouth, Throat: no problem reported Respiratory: no cough and no dyspnea Cardiovascular: no chest pain Gastrointestinal: + abdominal pain, + nausea, + vomiting and + change in bowel habits Genitourinary: no dysuria Musculoskeletal: + back pain Integumentary: no rash and no lesions Neurologic: no localized weakness and no generalized weakness Psychiatric: no behavioral changes Physical Exam Constitutional: WD/WN, vitals as above Eyes: PERRL, conjunctivae normal, anicteric sclerae ENMT: external ear and nose normal, oropharynx normal Neck: trachea midline Respiratory: normal respiratory effort, lungs clear to auscultation Cardiovascular: RRR, no murmur, no edema Gastrointestinal (Abdomen): Inspection/Auscultation: abdomen normal to inspection, + abdomen distended and normal bowel sounds Percussion/Palpation: + abdomen tender and abdomen soft; no guarding and no hernia Musculoskeletal: Head/Neck/Chest: normocephalic and head atraumatic Skin: no rashes, warm and dry Psychiatric: Orientation: alert and oriented x 3 Results & Data ([facility]) Vital Signs (Past 12 Hours) Vital Signs Temp Pulse Pulse Resp BP Pulse Ox 10/06/21 09:56 50 L 10/06/21 08:12 37.0 C 48 L 17 143/83 H 95 10/06/21 03:19 37.2 C 43 L 20 149/82 H 96 Diagnostic Findings ~ CT scan CLINICAL HISTORY: Rlq pain . Nausea and vomiting COMPARISON STUDY: No previous studies for comparison. CT DOSE: 462.02 mGy.cm TECHNIQUE: Standard CT of the Abdomen and Pelvis was performed with IV contrast. A dose lowering technique was utilized adhering to the principles of ALARA. Contrast Volume: Optiray 320, 94 ml. The patient did not receive oral contrast. FINDINGS: Lung base: The lung bases are clear. Abdominal cavity: There is no evidence for abdominal mass, adenopathy or ascites. Liver: There is homogeneous attenuation of the liver parenchyma. There is no evidence for enhancing mass lesion. Spleen: There is homogeneous attenuation of the splenic parenchyma. There is no enhancing mass lesion. Pancreas: There is homogeneous attenuation of the pancreatic parenchyma. There is no evidence for mass lesion or peripancreatic fluid collection. Gall Bladder: There is cholelithiasis with gallbladder wall thickening and minimal pericholecystic edema present. The presence of acute cholecystitis cannot be excluded and gallbladder ultrasound is recommended for further evaluation. Adrenal glands: The adrenal glands are normal in size and attenuation. There is no evidence for enhancing mass lesion. Kidneys: There is homogeneous attenuation of the renal parenchyma bilaterally. There is no evidence for renal calculus or hydronephrosis. There is no evidence for enhancing mass. Bowel: The stomach is distended with fluid. There is again mild to moderate dilatation of the jejunum and proximal ileum with air-fluid levels present. This is to the level of the left lower quadrant with what appears to be a transition zone at approximately image 302. This may relate to adhesions and produce the partial bowel obstruction present. The remaining small bowel loops are relatively decompressed. material seen throughout the colon without dilatation or obstruction. There is mild fecal stasis. There is no evidence for mass lesion. There are no inflammatory changes present. There is no evidence for free air. Bladder: The bladder is within normal limits with no evidence for focal mass, calculus or diverticulum. : There is no evidence for pelvic mass or adenopathy. There is no evidence for pelvic ascites. Vasculature: There is no evidence for aneurysmal dilatation of the abdominal aorta. Mild atherosclerotic calcification is present. Osseous structures: There is no acute osseous pathology. Degenerative changes are seen within the spine. IMPRESSION: 1. Evidence for partial small bowel obstruction in the region of the left lower quadrant as described above. The findings are most likely related to adhesions. 2. Cholelithiasis with wall thickening and middle pericholecystic edema. The presence of cholecystitis cannot be excluded and gallbladder ultrasound is recommended for further evaluation. 3. Additional nonacute findings are delineated above. US gallbladder CLINICAL HISTORY: ?shayy TECHNIQUE: Multiple real-time sonographic images of the right upper quadrant were obtained. Comparison: Comparison is made to CT abdomen pelvis 10/04/2021 FINDINGS: The liver is diffusely homogenous with normal contour and echogenicity. No focal mass lesions are seen. No intrahepatic ductal dilatation is seen. The gallbladder is suboptimally evaluated due to increased bowel gas. The gallbladder wall appears thickened measuring 5 mm. No definite visualization of stones. Sanders's sign cannot be assessed as the patient received pain medication. The common duct measures 0.3 cm in diameter at the level of the hepatic artery. The visualized portions of the pancreas appear normal. The right kidney shows normal echogenicity, cortical thickness and renal co ntour. The right kidney shows no evidence of hydronephrosis or mass. No ascites or free fluid is seen in Duong's pouch. IMPRESSION: Limited evaluation. Gallbladder wall thickening is seen. Sonographic Sanders's sign is clinical. In the appropriate setting, findings are suggestive of acute cholecystitis. If clinical uncertainty remains, HIDA study can be performed
[2021-10-07] MEDS: ACETAMINOPHEN 1,000 MG/100 ML VIAL IV PRN ×2 (01:23→10:20)
[2021-10-07] MEDS: LACTATED RINGER'S 1,000 ML IV SCH ×2 (01:45→15:04)
[2021-10-07] MEDS: KETOROLAC 30 MG/ML VIAL IV PRN ×2 (05:23→22:56)
[2021-10-07] MEDS: PIPERACILLIN/TAZOBACTAM 3.375 GM in DEXTROSE 5% 100 ML IV SCH ×2 (07:52→17:13)
--- NOTE | 2021-10-07 07:58 | XRay Report ---
XR KUB/Abdomen 1 view CLINICAL HISTORY: NGT placement TECHNIQUE: 1 view of the abdomen was obtained. Comparison: None available at the time of this dictation. FINDINGS: Enteric tube side-port is at the gastroesophageal junction. The osseous structures are grossly unrema rkable. Multiple dilated loops of bowel are seen. A moderate amount of stool is noted within the larg e bowel. IMPRESSION: 1. Enteric tube side-port is at the gastroesophageal junction and can be advanced approximately 6 mm for improved positioning. 2. Distended small bowel loops compatible with partial small bowel obstruction. ACT 112: Negative or not required by law. Electronically signed by: Darrick Desouza M.D. 10/07/2021 7:56 AM
[2021-10-07] MEDS: FAMOTIDINE 20 MG in SYRINGE 3 ML IV SCH ×2 (10:17→22:56)
--- NOTE | 2021-10-07 10:49 | XRay Report ---
XR KUB/Abdomen 1 view CLINICAL HISTORY: Follow-up partial small bowel obstruction. COMPARISON STUDY: 10/06/2021 TECHNIQUE: 2 supine views of the abdomen. FINDINGS: Compared to previous examination, moderately dilated loops of small bowel are again seen throughout t he abdomen and pelvis with paucity of gas within the colon. Findings are again characteristic of [place] a partial small bowel obstruction. There is no evidence for organomegaly or gross intra-abdomina l mass. No abnormal calcifications are seen along the course of the urinary tracts bilaterally. No ac [place] osseous pathology. IMPRESSION: 1. Persistent small bowel dilatation again most characteristic of partial small bowel obstruction. ACT 112: Negative or not required by law. Electronically signed by: Juni De Anda M.D. 10/07/2021 10:48 AM
[2021-10-07 11:35] LABS: Basophils # (auto) 0.02 K/uL (0-0.2); Basophils % (auto) 0.4 %; Eosinophils # (auto) 0.16 K/uL (0-0.5); Eosinophils % (auto) 3.5 %; Hematocrit (blood only) 42.7 % (42-52); Hemoglobin 14.6 g/dL (14.0-18.0); Immature Granulocytes # (auto) 0.01 K/uL (0.00-0.02); Immature Granulocytes % (auto) 0.2 %; Lymphocytes # (auto) 0.91 K/uL (1.2-3.4); Lymphocytes % (auto) 20.2 %; Mean Corpuscular Hemoglobin 29.1 pg (25-34); Mean Corpuscular Hgb Conc 34.2 g/dL (32-36); Mean Corpuscular Volume 85.2 fL (80-100); Mean Platelet Volume 11.2 fL (7.4-10.4); Monocytes % (auto) 11.1 %; Neutrophils # (auto) 2.91 K/uL (1.4-6.5); Neutrophils % (auto) 64.6 %; Platelet Count 139 K/uL (130-400); RDW Coefficient of Variation 12.8 % (11.5-14.5); RDW Standard Deviation 39.8 fL (36.4-46.3); Red Blood Count 5.01 M/uL (4.7-6.1); White Blood Count 4.51 K/uL (4.8-10.8)
[2021-10-07 11:54] LABS: BUN Creatinine Ratio 19.8 (10-20); Calcium 8.4 mg/dl (8.5-10.1); Creatinine Clr Calc Pharmacy 108.8 ml/min; Est GFR (African American) 113.1 ml/min; Est GFR (Non-African American) 97.6 ml/min; Potassium 3.2 mmol/L (3.5-5.1)
--- NOTE | 2021-10-07 12:24 | Hospitalist Progress Note ---
Date of Service October 07, 2021 Assessment & Plan (1) Small bowel obstruction: Plan: Suspected SBO Unclear etio ?2/2 Adhesions vs hernia vs inflammatory vs ?internal hernia - Serial KUB 10/07: Persistent small bowel dilatation again most characteristic of partial small bowel obstruction. CT: Partial small bowel obstruction and left lower quadrant suspect due to adhesions. Cholelithiasis with wall thickening and middle samira cholecystic edema, cholecystitis cannot be excluded. Recommended for gallbladder ultrasound. - GB US: Limited evaluation. Gallbladder wall thickening is seen. Sonographic Sanders's sign is clinical. In the appropriate setting, findings are suggestive of acute cholecystitis. If clinical uncertainty remains, HIDA study can be performed. - HIDA: 1. No evidence for acute cholecystitis. 2. Visualization of gallbladder activity following morphine administration. This suggests chronic cholecystitis. - Tbili normal, AST/ALT/AlkPh normal - Small bowel obstruction left lower quadrant - Continued on Zosyn, d/c if - No history of surgeries or significant intra-abdominal infections - N.p.o. - Zofran 4mg IV Q6H PRN -Famotidine 20 mg IV every 12 hours -LR at 80 mils per hour -Acetaminophen 1 g IV every 8 hours as needed mild pain or fever -Toradol 30 mg IV every 6 hours as needed moderate pain -Morphine sulfate 4 mg IV every 3 hours as needed severe pain Continues with 500-100 NGT output, no BM/flatus 10/07. Potassium low, + IV supplemented, trend daily. Mg 1.8 Some return of flatus in afternoon 10/07. 10/07 recommended to continue conservative measures, keep NGT to LIS surgery following. IV abx continued (2) Cholecystitis: Plan: CT as noted above right upper quadrant tenderness, mild leukocytosis to 11.3 on admission no transaminitis or hyperbilirubinemia leukocytosis normalized during admission Discussed with surgery by admitting provider. Recommended for admission to medicine service Gallbladder ultrasound as noted - Surgery consulted HIDA scan with no evidence of acute cholecystitis, visualization of gallbladder activity. Suggestive of chronic cholecystitis. (3) Bradycardia: Plan: Bradycardia with heart rate as low as 30s overnight, patient asymptomatic On telemetry review concern for some dropped QRS complexes without W[place] interval extension suspicious for 2:1 Mobitz 2 type II heart block Metoprolol held indefinitely Cardiology consulted EKG/strips reviewed. Unable to completely distinguish Mobitz 1 from 2 based on rhythm, but more suspicious for Mobitz 1 without significant purkinje disease. Hold MTP indefinitely, would ambulate as able and suspect conduction will improve with rate. Follow for clinical sx or pauses >2.5s - Lyme serology negative 10/07: Patient with bradycardia to 3040s, with ambulation immediately improved to 60s70s. No pauses, no symptoms at this time (4) Hypertension: Plan: - Metoprolol discontinued with bradycardia as above - Hydralazine 10 mg IV every 4 hours. Systolic blood pressure greater than 160 No indication for adjunct antihypertensive at this time (5) Atrial fibrillation: Plan: Confirmed history of this with [facility] Patient has a history of paroxysmal A. fib Has been prescribed Eliquis and metoprolol for A. fib (previously reported metoprolol was for his thyroid this is incorrect) but patient takes his own med and cell and is very poorly compliant with these medications. While Eliquis is on order takes this rarely throughout the week. Metoprolol held for concern of heart block above - Of note, patient reports that he was briefly considered to have atrial fibrillation in the setting of acute Lyme disease which was treated and has not been on Eliquis for greater than 1 year. Called and reviewed with [facility], patient has a history of an episode of suspected A. fib and was recommended to be on metoprolol/Eliquis but is poorly compliant with medications. Per patient has not been in A. fib for over a year, and patient per records seems to have been regular for the last year. Discussed with nursing staff, no EKG to confirmed A. fib or not, or if it has ever recurred. [id number] of 1. Does report that he has not had any confirmed A. fib outside of the initial episode, and that was thought to be provoked in the setting of Lyme disease. He also reports that even if strongly recommended he does not intend to take anticoagulation as it makes him feel poorly. At this point given single episode, [id number] 1, and sinus rhythm will defer anticoagulation but patient is agreeable to mobile telemetry once discharged to quantify A. fib burden if occult. (6) Hypothyroidism: Plan: Synthroid 75 mcg daily Repeat TSH normal (7) Vitamin D deficiency: Plan: Hold 25 mcg daily supplement while n.p.o. Admission and Anticipated Discharge Date Admission Date: October 04, 2021 Subjective Seen at bedside in the morning. Patient on morning exam has not had a bowel movement, has not passed gas. On afternoon reassessment has been passing some gas. KUB unchanged. Pending HIDA at time of visit. Endorses unchanged abdominal distention and mild tenderness without acute worsening. Heart rate continues to be low while lying in bed in 30s. Improves immediately to 60s to 70s with ambulation around the room. No lightheadedness, dizziness, syncope. Continues to have coke colored output into NGT with green froth Review of Systems Review of Systems: All systems reviewed & are unremarkable except as noted in Subjective Physical Exam Physical Exam: General: A&Ox3. NAD. Cooperative. HEENT: Atraumatic, normocephalic. NGT in place, continues to drain coke colored output Pulm: CTAB A&P. -wheezes, -rales, -rhonchi. Symmetrical chest rise. No increase in work of breathing. No respiratory distress. Cardiac: Regular, bradycardic, -mrg. Improves to a regular rate with ambulation radial pulses intact and symmetrical. Abdominal: No right upper quadrant tenderness today. Does have distention and bloating discomfort in lower abdomen bilaterally without guarding or rebound BS present. Extremities: Warm, dry, intact Results & Data Results & Data ([facility]) Vital Signs (Past 12 Hours) Vital Signs Temp Pulse Resp BP Pulse Ox 10/07/21 08:00 36.8 C 47 L 18 130/76 94 10/07/21 04:00 37.1 C 41 L 18 154/90 H 93 PG Care Time/CCT Total # of Minutes Spent Total Time Spent with Patient: Total time spent is greater than 50% in coordination of care (as documented) at patient's floor/unit and/or counseling patient: Coding Level of Care Code 82994 Subseq Hosp Care Lvl 2 Diagnoses Small bowel obstruction K56.609 Cholecystitis K81.9 Bradycardia R00.1 Hypertension I10 Atrial fibrillation I48.91 Hypothyroidism E03.9 Vitamin D deficiency E55.9
[2021-10-07] MEDS ORDERED: MoRPHine SULFATE 2 MG/ML CARP ONE (14:07)
[2021-10-07] MEDS: POTASSIUM CHLORIDE / WTR 10 MEQ/100 ML PLCT IV SCH ×3 (15:05→17:50)
--- NOTE | 2021-10-07 15:10 | Nuclear Medicine Report ---
NUCLEAR MEDICINE HEPATOBILIARY SCAN CLINICAL HISTORY: Abdominal pain. COMPARISON: CT of the abdomen and pelvis October 04, 2021. Right upper quadrant ultrasound October 05 2. TECHNIQUE: 5.4 mCi of technetium 99m Choletec IV was injected at 1:00 PM on October 07, 2021. Immediat brenda following injection, imaging of the abdomen was carried out for 60 minutes in the anterior projec tion. At 60 minutes following radiotracer injection, activity within the gallbladder was not identifi ed and therefore 2 mg of morphine was administered IV as per protocol. FINDINGS: Hepatic uptake of radiotracer is prompt and homogeneous. Activity was identified within th e common bile duct and small bowel at 10 minutes. Gallbladder activity was not identified at 60 minut es and therefore morphine was administered. Gallbladder activity was noted 10 minutes following morph ine administration. IMPRESSION: 1. No evidence for acute cholecystitis. 2. Visualization of gallbladder activity following morphine administration. This suggests chronic cho lecystitis. ACT 112: Negative or not required by law. Electronically signed by: Tom Branham M.D. 10/07/2021 3:09 PM
--- NOTE | 2021-10-07 15:44 | Surgery Progress Note ---
Date of Service October 07, 2021 Assessment & Plan (1) Cholecystitis: Plan: HIDA scan pending IV abx IVF (2) Small bowel obstruction: Plan: ngt No history of prior abdominal surgery KUB showing persistent SBO however gas twithin colon + small amount of flatus today Plan: Continue conservative measures awaiting HIDA scan results repeat am labs repeat KUB tomorrow Keep NGT to LIS If not significant improvement may need to consider taking to operating room for the SBO given no history of abdominal surgery and concern for possible internal hernia as cause of SBO. Dr. Britt has seen and examined pt, agrees with above. Admission and Anticipated Discharge Date Admission Date: October 04, 2021 Subjective abdominal pain still present but stable passed small amount of gas today NGT still present no nausea or vomiting Physical Exam Constitutional: WD/WN, vitals as above no acute distress and not ill appearing Respiratory: normal respiratory effort; no respiratory distress, no labored breathing and no retractions Gastrointestinal (Abdomen): Inspection/Auscultation: + abdomen distended (mild) and + hypoactive bowel sounds; + abnormal bowel sounds and no abdominal surgical scar Percussion/Palpation: + abdomen tender (LUQ) and abdomen soft; no guarding and abdomen not rigid NGT with bilious output Skin: no rashes, warm and dry Psychiatric: A+Ox3, euthymic affect Results & Data ([facility]) Vital Signs (Past 12 Hours) Vital Signs Temp Pulse Resp BP Pulse Ox 10/07/21 15:31 36.5 C 54 L 18 150/82 H 94 10/07/21 08:00 36.8 C 47 L 18 130/76 94 10/07/21 04:00 37.1 C 41 L 18 154/90 H 93 Laboratory Results 10/07/21 10/07/21 10/07/21 Range/Units 11:18 11:18 11:18 WBC 4.51 L (4.8-10.8) K/uL RBC 5.01 (4.7-6.1) M/uL Hgb 14.6 (14.0-18.0) g/dL Hct 42.7 (42-52) % MCV 85.2 (80-100) fL MCH 29.1 (25-34) pg MCHC 34.2 (32-36) g/dL RDW Std Deviation 39.8 (36.4-46.3) fL RDW Coeff of Rosa 12.8 (11.5-14.5) % Plt Count 139 (130-400) K/uL MPV 11.2 H (7.4-10.4) fL Immature Gran % (Auto) 0.2 % Neut % (Auto) 64.6 % Lymph % (Auto) 20.2 % [place] % (Auto) 11.1 % Eos % (Auto) 3.5 % Baso % (Auto) 0.4 % Neut # (Auto) 2.91 (1.4-6.5) K/uL Lymph # (Auto) 0.91 L (1.2-3.4) K/uL [place] # (Auto) 0.50 (0.11-0.59) K/uL Eos # (Auto) 0.16 (0-0.5) K/uL Baso # (Auto) 0.02 (0-0.2) K/uL Immature Gran # (Auto) 0.01 (0.00-0.02) K/uL Sodium 135 L (136-145) mmol/L Potassium 3.2 L (3.5-5.1) mmol/L Chloride 101 (98-107) mmol/L Carbon Dioxide 24 (21-32) mmol/L Anion Gap 10 (3-11) BUN 17 (6-23) mg/dl Creatinine 0.86 (0.6-1.4) mg/dl Est Cr Clr Drug Dosing 108.8 ml/min Est GFR ( Amer) 113.1 ml/min Est GFR (Non-Af Amer) 97.6 ml/min BUN/Creatinine Ratio 19.8 (10-20) Glucose 84 (70-99(Fasting)) mg/dl Calcium 8.4 L (8.5-10.1) mg/dl Magnesium 1.8 (1.7-2.4) mg/dl Diagnostic Findings XR KUB/Abdomen 1 view CLINICAL HISTORY: Follow-up partial small bowel obstruction. COMPARISON STUDY: 10/06/2021 TECHNIQUE: 2 supine views of the abdomen. FINDINGS: Compared to previous examination, moderately dilated loops of small bowel are again seen throughout the abdomen and pelvis with paucity of gas within the colon. Findings are again characteristic of at least a partial small bowel obstruction. There is no evidence for organomegaly or gross intra-abdominal mass. No abnormal calcifications are seen along the course of the urinary tracts bilaterally. No acute osseous pathology. IMPRESSION: 1. Persistent small bowel dilatation again most characteristic of partial small bowel obstruction.
[2021-10-07] MEDS: MoRPHine SULFATE 4 MG/ML 1 ML CARP\\VIAL IV PRN (19:28)
[2021-10-08] MEDS: PIPERACILLIN/TAZOBACTAM 3.375 GM in DEXTROSE 5% 100 ML IV SCH ×4 (00:08→23:25)
[2021-10-08] MEDS: MoRPHine SULFATE 4 MG/ML 1 ML CARP\\VIAL IV PRN ×3 (02:14→20:15)
[2021-10-08] MEDS: LACTATED RINGER'S 1,000 ML IV SCH ×2 (02:26→14:35)
[2021-10-08 06:57] LABS: Basophils # (auto) 0.01 K/uL (0-0.2); Basophils % (auto) 0.2 %; Eosinophils # (auto) 0.19 K/uL (0-0.5); Eosinophils % (auto) 4.5 %; Hematocrit (blood only) 39.7 % (42-52); Hemoglobin 13.6 g/dL (14.0-18.0); Lymphocytes # (auto) 1.15 K/uL (1.2-3.4); Mean Corpuscular Hemoglobin 29.2 pg (25-34); Mean Corpuscular Hgb Conc 34.3 g/dL (32-36); Mean Corpuscular Volume 85.2 fL (80-100); Mean Platelet Volume 11.1 fL (7.4-10.4); Monocytes # (auto) 0.38 K/uL (0.11-0.59); Monocytes % (auto) 8.9 %; Neutrophils # (auto) 2.53 K/uL (1.4-6.5); Neutrophils % (auto) 59.4 %; Platelet Count 133 K/uL (130-400); RDW Coefficient of Variation 12.7 % (11.5-14.5); RDW Standard Deviation 39.1 fL (36.4-46.3); Red Blood Count 4.66 M/uL (4.7-6.1); White Blood Count 4.26 K/uL (4.8-10.8)
[2021-10-08 07:40] LABS: BUN Creatinine Ratio 19.3 (10-20); Calcium 7.8 mg/dl (8.5-10.1); Creatinine Clr Calc Pharmacy 114.5 ml/min; Est GFR (African American) 114.8 ml/min; Est GFR (Non-African American) 99.1 ml/min; Potassium 3.3 mmol/L (3.5-5.1)
--- NOTE | 2021-10-08 09:46 | XRay Report ---
KUB CLINICAL HISTORY: eval SBO COMPARISON STUDY: CT of the abdomen and pelvis 06/06/2021. KUB October 07, 2021. FINDINGS: Numerous loops of moderately dilated small bowel persist. Small bowel dilatation has increa sed since CT of October 04, 2021. Dilatation is similar to prior KUB. Tip of nasogastric tube is within the proximal stomach. Sidehole projects over the distal esophagus. The tube could be advanced an adamaris tional 4 cm. IMPRESSION: 1. Findings consistent with a persistent small bowel obstruction. Small bowel dilatation has increase d since CT of October 04, 2021. 2. Tip of nasogastric tube projects over the proximal stomach. Sidehole projects over the distal esop hagus. The nasogastric tube could be advanced 4 cm. ACT 112: Negative or not required by law. Electronically signed by: Tom Branham M.D. 10/08/2021 9:45 AM
[2021-10-08] MEDS: POTASSIUM CHLORIDE / WTR 10 MEQ/100 ML PLCT IV SCH ×4 (09:56→13:10)
[2021-10-08] MEDS: FAMOTIDINE 20 MG in SYRINGE 3 ML IV SCH ×2 (10:53→23:24)
[2021-10-08] MEDS ORDERED: POLYETHYLENE (MIRALAX) 17 GM PACK PO ONE (12:06)
--- NOTE | 2021-10-08 14:27 | Hospitalist Progress Note ---
Date of Service October 08, 2021 Assessment & Plan (1) Small bowel obstruction: Plan: Suspected SBO Unclear etio ?2/2 Adhesions vs hernia vs inflammatory vs ?internal hernia - Serial KUB 10/07: Persistent small bowel dilatation again most characteristic of partial small bowel obstruction. CT: Partial small bowel obstruction and left lower quadrant suspect due to adhesions. Cholelithiasis with wall thickening and middle samira cholecystic edema, cholecystitis cannot be excluded. Recommended for gallbladder ultrasound. - GB US: Limited evaluation. Gallbladder wall thickening is seen. Sonographic Sanders's sign is clinical. In the appropriate setting, findings are suggestive of acute cholecystitis. If clinical uncertainty remains, HIDA study can be performed. - HIDA: 1. No evidence for acute cholecystitis. 2. Visualization of gallbladder activity following morphine administration. This suggests chronic cholecystitis. - Tbili normal, AST/ALT/AlkPh normal - Small bowel obstruction left lower quadrant - Continued on Zosyn, d4 - No history of surgeries or significant intra-abdominal infections - N.p.o. advance to clears 10/08 - Zofran 4mg IV Q6H PRN -Famotidine 20 mg IV every 12 hours -LR at 80 mils per hour while PO improving -Acetaminophen 1 g IV every 8 hours as needed mild pain or fever -Toradol 30 mg IV every 6 hours as needed moderate pain 10/08 NGT output decreased, patient with 1 very small bowel movement and flatus. NGT removed. Was seen by surgery do not anticipate cholecystectomy at this time given clinical improvement, recommended following for progression at this time. Continue current treatment. KCL repleted IV. -Morphine sulfate 4 mg IV every 3 hours as needed severe pain, patient started to clinically improve and dose decreased to 2 mg. (2) Cholecystitis: Plan: Chronic cholecystitis, no acute cholecystitis appreciated. right upper quadrant tenderness, mild leukocytosis to 11.3 on admission no transaminitis or hyperbilirubinemia leukocytosis normalized during admission Discussed with surgery by admitting provider. Recommended for admission to medicine service Gallbladder ultrasound as noted - Surgery consulted. No surgical intervention anticipated 10/08 or 10/09, following SBO beginning to improve as above HIDA scan with no evidence of acute cholecystitis, visualization of gallbladder activity. Suggestive of chronic cholecystitis. (3) Bradycardia: Plan: Bradycardia with heart rate as low as 30s overnight, patient asymptomatic On telemetry review concern for some dropped QRS complexes, 2-1 block type II block. Metoprolol held indefinitely Cardiology consulted EKG/strips reviewed. Unable to completely distinguish Mobitz 1 from 2 based on rhythm, but more suspicious for Mobitz 1 without significant purkinje disease. Hold MTP indefinitely, would ambulate as able and suspect conduction will improve with rate. Follow for clinical sx or pauses >2.5s - Lyme serology negative Continues to be bradycardic in the evenings, improves with ambulation and during the day. No pacer indicated at this time. (4) Hypertension: Plan: - Metoprolol discontinued with bradycardia as above - Hydralazine 10 mg IV every 4 hours. Systolic blood pressure greater than 160 No indication for adjunct antihypertensive at this time (5) Atrial fibrillation: Plan: Confirmed history of this with [facility] Patient has a history of paroxysmal A. fib Has been prescribed Eliquis and metoprolol for A. fib (previously reported metoprolol was for his thyroid this is incorrect) but patient takes his own med and cell and is very poorly compliant with these medications. While Eliquis is on order takes this rarely throughout the week. Metoprolol held for concern of heart block above - Of note, patient reports that he was briefly considered to have atrial fibrillation in the setting of acute Lyme disease which was treated and has not been on Eliquis for greater than 1 year. Called and reviewed with [facility], patient has a history of an episode of suspected A. fib and was recommended to be on metoprolol/Eliquis but is poorly compliant with medications. Per patient has not been in A. fib for over a year, and patient per records seems to have been regular for the last year. Discussed with nursing staff, no EKG to confirmed A. fib or not, or if it has ever recurred. [id number] of 1. Does report that he has not had any confirmed A. fib outside of the initial episode, and that was thought to be provoked in the setting of Lyme disease. He also reports that even if strongly recommended he does not intend to take anticoagulation as it makes him feel poorly. At this point given single episode, [id number] 1, and sinus rhythm will defer anticoagulation but patient is agreeable to mobile telemetry once discharged to quantify A. fib burden if occult. (6) Hypothyroidism: Plan: Synthroid 75 mcg daily Repeat TSH normal (7) Vitamin D deficiency: Plan: Hold 25 mcg daily supplement while n.p.o. Admission and Anticipated Discharge Date Admission Date: October 04, 2021 Subjective Seen at the bedside. Gastric drainage has decreased from yesterday, and did have 1 very small bowel movement and continues to pass flatus. Was seen by surgery, no plan for cholecystectomy at this time and following on current treatment clinically. GT was removed this morning, patient reports he feels okay, and did tolerate some clears very slowly. Continues to have abdominal distention without severe pain, denies nausea/vomiting since NGT removed. No chest pain/chest pressure/fever/chills. Review of Systems Review of Systems: All systems reviewed & are unremarkable except as noted in Subjective Physical Exam Physical Exam: General: A&Ox3. NAD. Cooperative. HEENT: Atraumatic, normocephalic. NGT no longer present Pulm: CTAB A&P. -wheezes, -rales, -rhonchi. Symmetrical chest rise. No increase in work of breathing. No respiratory distress. Cardiac: Regular, bradycardic, -mrg. Improves to a regular rate with ambulation radial pulses intact and symmetrical. Abdominal: Distended without tenderness, no guarding, BS remain diminished but intermittently present. Extremities: Warm, dry, intact Results & Data Results & Data ([facility]) Vital Signs (Past 12 Hours) Vital Signs Temp Pulse Pulse Resp BP Pulse Ox 10/08/21 11:09 36.7 C 56 L 18 145/84 H 96 10/08/21 08:28 37.2 C 49 L 18 152/83 H 95 10/08/21 07:25 45 L 10/08/21 03:05 36.9 C 54 L 18 143/83 H 94 PG Care Time/CCT Total # of Minutes Spent Total Time Spent with Patient: Total time spent is greater than 50% in coordination of care (as documented) at patient's floor/unit and/or counseling patient: Coding Level of Care Code 40335 Subseq Hosp Care Lvl 2 Diagnoses Small bowel obstruction K56.609 Cholecystitis K81.9 Bradycardia R00.1 Hypertension I10 Atrial fibrillation I48.91 Hypothyroidism E03.9 Vitamin D deficiency E55.9
--- NOTE | 2021-10-08 15:42 | Surgery Progress Note ---
Date of Service October 08, 2021 Assessment & Plan (1) Cholecystitis: Plan: HIDA scan showing signs of chronic cholecystitis however no acute cholecystitis or cystic duct obstruction No leukocytosis Gallbladder unlikely cause of patient's abdominal pain on presentation and more likely due to his bowel obstruction. No indication for laparoscopic cholecystectomy at this time given small bowel dilatation and bowel obstruction. (2) Small bowel obstruction: Plan: KUB this a.m. showing persistent small bowel obstruction however this was prior to patient having a large bowel movement and passing a lot of gas. ngt removed Start clear liquids advised to go slowly Dr. Britt has seen and examined pt, agrees with above. Plan: Admission and Anticipated Discharge Date Admission Date: October 04, 2021 Subjective Feeling better today Had a decent sized regular formed bowel movement this morning after coming back from x-ray Passing a lot of gas this morning No nausea no vomiting Abdomen feels less distended Hungry Physical Exam Constitutional: WD/WN, vitals as above no acute distress and not ill appearing Neck: normal visual inspection and trachea midline Respiratory: normal respiratory effort; no respiratory distress and no labored breathing Gastrointestinal (Abdomen): Inspection/Auscultation: abdomen normal to inspection Percussion/Palpation: + abdomen tender (Left upper quadrant) and abdomen soft; no guarding and abdomen not rigid Skin: no rashes, warm and dry Psychiatric: A+Ox3, euthymic affect Results & Data ([facility]) Vital Signs (Past 12 Hours) Vital Signs Temp Pulse Pulse Resp BP Pulse Ox 10/08/21 15:02 48 L 10/08/21 11:09 36.7 C 56 L 18 145/84 H 96 10/08/21 08:28 37.2 C 49 L 18 152/83 H 95 10/08/21 07:25 45 L Laboratory Results 10/08/21 10/08/21 Range/Units 05:49 05:49 WBC 4.26 L (4.8-10.8) K/uL RBC 4.66 L (4.7-6.1) M/uL Hgb 13.6 L (14.0-18.0) g/dL Hct 39.7 L (42-52) % MCV 85.2 (80-100) fL MCH 29.2 (25-34) pg MCHC 34.3 (32-36) g/dL RDW Std Deviation 39.1 (36.4-46.3) fL RDW Coeff of Rosa 12.7 (11.5-14.5) % Plt Count 133 (130-400) K/uL MPV 11.1 H (7.4-10.4) fL Immature Gran % (Auto) 0.0 % Neut % (Auto) 59.4 % Lymph % (Auto) 27.0 % Mcintosh % (Auto) 8.9 % Eos % (Auto) 4.5 % Baso % (Auto) 0.2 % Neut # (Auto) 2.53 (1.4-6.5) K/uL Lymph # (Auto) 1.15 L (1.2-3.4) K/uL Mcintosh # (Auto) 0.38 (0.11-0.59) K/uL Eos # (Auto) 0.19 (0-0.5) K/uL Baso # (Auto) 0.01 (0-0.2) K/uL Immature Gran # (Auto) 0.00 (0.00-0.02) K/uL Sodium 135 L (136-145) mmol/L Potassium 3.3 L (3.5-5.1) mmol/L Chloride 101 (98-107) mmol/L Carbon Dioxide 25 (21-32) mmol/L Anion Gap 9 (3-11) BUN 16 (6-23) mg/dl Creatinine 0.83 (0.6-1.4) mg/dl Est Cr Clr Drug Dosing 114.5 ml/min Est GFR ( Amer) 114.8 ml/min Est GFR (Non-Af Amer) 99.1 ml/min BUN/Creatinine Ratio 19.3 (10-20) Glucose 60 L (70-99(Fasting)) mg/dl Calcium 7.8 L (8.5-10.1) mg/dl Diagnostic Findings KUB CLINICAL HISTORY: eval SBO COMPARISON STUDY: CT of the abdomen and pelvis 06/06/2021. KUB October 07, 2021. FINDINGS: Numerous loops of moderately dilated small bowel persist. Small bowel dilatation has increased since CT of October 04, 2021. Dilatation is similar to prior KUB. Tip of nasogastric tube is within the proximal stomach. Sidehole projects over the distal esophagus. The tube could be advanced an additional 4 cm. IMPRESSION: 1. Findings consistent with a persistent small bowel obstruction. Small bowel dilatation has increased since CT of October 04, 2021. 2. Tip of nasogastric tube projects over the proximal stomach. Sidehole projects over the distal esophagus. The nasogastric tube could be advanced 4 cm.
[2021-10-09] MEDS: LACTATED RINGER'S 1,000 ML IV SCH ×2 (01:45→12:41)
[2021-10-09 07:22] LABS: Basophils # (auto) 0.01 K/uL (0-0.2); Basophils % (auto) 0.2 %; Eosinophils # (auto) 0.16 K/uL (0-0.5); Hematocrit (blood only) 41.9 % (42-52); Hemoglobin 14.7 g/dL (14.0-18.0); Immature Granulocytes # (auto) 0.01 K/uL (0.00-0.02); Immature Granulocytes % (auto) 0.2 %; Lymphocytes # (auto) 0.94 K/uL (1.2-3.4); Lymphocytes % (auto) 17.6 %; Mean Corpuscular Hemoglobin 29.8 pg (25-34); Mean Corpuscular Hgb Conc 35.1 g/dL (32-36); Mean Platelet Volume 10.9 fL (7.4-10.4); Monocytes # (auto) 0.43 K/uL (0.11-0.59); Platelet Count 161 K/uL (130-400); RDW Coefficient of Variation 12.6 % (11.5-14.5); Red Blood Count 4.93 M/uL (4.7-6.1); White Blood Count 5.35 K/uL (4.8-10.8)
[2021-10-09 07:45] LABS: Calcium 8.4 mg/dl (8.5-10.1); Est GFR (African American) 112.1 ml/min; Est GFR (Non-African American) 96.7 ml/min; Potassium 4.3 mmol/L (3.5-5.1)
[2021-10-09] MEDS: PIPERACILLIN/TAZOBACTAM 3.375 GM in DEXTROSE 5% 100 ML IV SCH ×2 (08:42→16:55)
[2021-10-09] MEDS: MoRPHine SULFATE 4 MG/ML 1 ML CARP\\VIAL IV PRN ×3 (08:48→23:21)
[2021-10-09] MEDS: FAMOTIDINE 20 MG in SYRINGE 3 ML IV SCH ×2 (12:10→23:36)
--- NOTE | 2021-10-09 13:27 | XRay Report ---
XR KUB/Abdomen 1 view CLINICAL HISTORY: Vomiting , eval for SBO TECHNIQUE: 1 view of the abdomen was obtained. Comparison: Comparison is made to abdomen radiograph 10/08/2021 FINDINGS: Multiple distended loops of small bowel are again seen. These measure up to 49 mm in diameter and may be minimally improved from prior exam. Degenerative changes are seen in the visualized skeleton. IMPRESSION: Redemonstration of small bowel obstruction, some loops appear less distended than in the prior exam. ACT 112: Negative or not required by law. Electronically signed by: Darrick Desouza M.D. 10/09/2021 1:25 PM
--- NOTE | 2021-10-09 14:35 | Surgery Progress Note ---
Date of Service October 09, 2021 Assessment & Plan (1) Small bowel obstruction: Plan: KUB today showing persistent small bowel obstruction 2 episodes of vomiting this a.m No no flatus or bowel movement today Abdomen is distended no peritoneal signs on exam however tender in the left lower quadrant No leukocytosis, afebrile Plan: This is currently hospital day #5 with persistent small bowel obstruction on abdominal imaging and now with 2 episodes of vomiting, abdominal distention and no bowel function status post NG tube removal yesterday. Patient has no history of intra-abdominal surgeries therefore there is concern of possible internal hernia as the cause of his small bowel obstruction. Given no significant improvement in 5 days with conservative management would recommend exploratory laparotomy with possible bowel resection possible ostomy. This was discussed with patient by Dr. Britt and informed consent obtained. Keep n.p.o. today Continue pain management as needed Encourage out of bed to chair and ambulation OR tomorrow morning for ex lap Dr. Britt was present during my examination and agrees with above. Plan: Admission and Anticipated Discharge Date Admission Date: October 04, 2021 Subjective Patient had 2 episodes of vomiting this morning Feels bloated having left lower quadrant abdominal pain States that he felt very full after Jell-O and ice yesterday not passing any gas or significant bowel movement today Physical Exam Constitutional: WD/WN, vitals as above no acute distress and not ill appearing Neck: normal visual inspection and trachea midline Respiratory: normal respiratory effort; no respiratory distress Gastrointestinal (Abdomen): Inspection/Auscultation: + abdomen distended and + hypoactive bowel sounds; + abnormal bowel sounds and no abdominal surgical scar Percussion/Palpation: + abdomen tender (Left lower quadrant on percussion and palpation), + guarding (Voluntary guarding in the left lower quadrant on deep palpation) and abdomen soft; abdomen not rigid (No peritonitis) Skin: no rashes, warm and dry Psychiatric: Orientation: alert and oriented x 3 Results & Data ([facility]) Vital Signs (Past 12 Hours) Vital Signs Temp Pulse Pulse Resp BP Pulse Ox 10/09/21 11:45 37.0 C 45 L 18 134/68 96 10/09/21 08:34 36.8 C 47 L 18 153/80 H 96 10/09/21 07:15 41 L 10/09/21 04:34 37.1 C 43 L 18 153/84 H 95 Laboratory Results 10/09/21 10/09/21 Range/Units 06:48 06:48 WBC 5.35 (4.8-10.8) K/uL RBC 4.93 (4.7-6.1) M/uL Hgb 14.7 (14.0-18.0) g/dL Hct 41.9 L (42-52) % MCV 85.0 (80-100) fL MCH 29.8 (25-34) pg MCHC 35.1 (32-36) g/dL RDW Std Deviation 39.0 (36.4-46.3) fL RDW Coeff of Rosa 12.6 (11.5-14.5) % Plt Count 161 (130-400) K/uL MPV 10.9 H (7.4-10.4) fL Immature Gran % (Auto) 0.2 % Neut % (Auto) 71.0 % Lymph % (Auto) 17.6 % [place] % (Auto) 8.0 % Eos % (Auto) 3.0 % Baso % (Auto) 0.2 % Neut # (Auto) 3.80 (1.4-6.5) K/uL Lymph # (Auto) 0.94 L (1.2-3.4) K/uL [place] # (Auto) 0.43 (0.11-0.59) K/uL Eos # (Auto) 0.16 (0-0.5) K/uL Baso # (Auto) 0.01 (0-0.2) K/uL Immature Gran # (Auto) 0.01 (0.00-0.02) K/uL Sodium 137 (136-145) mmol/L Potassium 4.3 D (3.5-5.1) mmol/L Chloride 103 (98-107) mmol/L Carbon Dioxide 27 (21-32) mmol/L Anion Gap 7 (3-11) BUN 7 (6-23) mg/dl Creatinine 0.88 (0.6-1.4) mg/dl Est Cr Clr Drug Dosing 109.0 ml/min Est GFR ( Amer) 112.1 ml/min Est GFR (Non-Af Amer) 96.7 ml/min BUN/Creatinine Ratio 8.0 L (10-20) Glucose 81 (70-99(Fasting)) mg/dl Calcium 8.4 L (8.5-10.1) mg/dl Diagnostic Findings XR KUB/Abdomen 1 view CLINICAL HISTORY: Vomiting , eval for SBO TECHNIQUE: 1 view of the abdomen was obtained. Comparison: Comparison is made to abdomen radiograph 10/08/2021 FINDINGS: Multiple distended loops of small bowel are again seen. These measure up to 49 mm in diameter and may be minimally improved from prior exam. Degenerative changes are seen in the visualized skeleton. IMPRESSION: Redemonstration of small bowel obstruction, some loops appear less distended than in the prior exam.
[2021-10-09] MEDS: ONDANSETRON INJ 2 MG/ML 2 ML VIAL IV PRN (15:55)
--- NOTE | 2021-10-09 18:15 | Hospitalist Progress Note ---
Date of Service October 09, 2021 Assessment & Plan (1) Small bowel obstruction: Plan: Suspected SBO Unclear etio ?2/2 Adhesions vs hernia vs inflammatory vs ?internal hernia - Serial KUB 10/07: Persistent small bowel dilatation again most characteristic of partial small bowel obstruction. CT: Partial small bowel obstruction and left lower quadrant suspect due to adhesions. Cholelithiasis with wall thickening and middle samira cholecystic edema, cholecystitis cannot be excluded. Recommended for gallbladder ultrasound. - GB US: Limited evaluation. Gallbladder wall thickening is seen. Sonographic Sanders's sign is clinical. In the appropriate setting, findings are suggestive of acute cholecystitis. If clinical uncertainty remains, HIDA study can be performed. - HIDA: 1. No evidence for acute cholecystitis. 2. Visualization of gallbladder activity following morphine administration. This suggests chronic cholecystitis. attempt to removed ngt met with vomiting and increased distension, surgery considering ex lap 10/10/21 (2) Cholecystitis: Plan: Chronic cholecystitis, no acute cholecystitis appreciated. . (3) Bradycardia: Plan: Bradycardia with heart rate as low as 30s overnight, patient asymptomatic On telemetry review concern for some dropped QRS complexes, 2-1 block type II block. Metoprolol held indefinitely Cardiology consulted EKG/strips reviewed. Unable to completely distinguish Mobitz 1 from 2 based on rhythm, but more suspicious for Mobitz 1 without significant purkinje disease. Hold MTP indefinitely, would ambulate as able and suspect conduction will improve with rate. Follow for clinical sx or pauses >2.5s - Lyme serology negative Continues to be bradycardic in the evenings, improves with ambulation and during the day. No pacer indicated at this time. (4) Hypertension: Plan: - Metoprolol discontinued with bradycardia as above - (5) Atrial fibrillation: Plan: Confirmed history of this with [facility] Patient has a history of paroxysmal A. fib Has been prescribed Eliquis and metoprolol for A. fib (previously reported metoprolol was for his thyroid this is incorrect) but patient takes his own med and cell and is very poorly compliant with these medications. While Eliquis is on order takes this rarely throughout the week. Metoprolol held for concern of heart block above - Of note, patient reports that he was briefly considered to have atrial fibrillation in the setting of acute Lyme disease which was treated and has not been on Eliquis for greater than 1 year. Called and reviewed with [facility], patient has a history of an episode of suspected A. fib and was recommended to be on metoprolol/Eliquis but is poorly compliant with medications. Per patient has not been in A. fib for over a year, and patient per records seems to have been regular for the last year. Discussed with nursing staff, no EKG to confirmed A. fib or not, or if it has ever recurred. [id number] of 1. Does report that he has not had any confirmed A. fib outside of the initial episode, and that was thought to be provoked in the setting of Lyme disease. He also reports that even if strongly recommended he does not intend to take anticoagulation as it makes him feel poorly. At this point given single episode, [id number] 1, and sinus rhythm will defer anticoagulation but patient is agreeable to mobile telemetry once discharged to quantify A. fib burden if occult. (6) Hypothyroidism: Plan: Synthroid 75 mcg daily Repeat TSH normal (7) Vitamin D deficiency: Plan: Hold 25 mcg daily supplement while n.p.o. Admission and Anticipated Discharge Date Admission Date: October 04, 2021 Subjective Pt has ngt removed, 10/08, vomited 10/09, now with worsened distension, surgery is considering ex lap 10/10/21 Review of Systems Review of Systems: moderate distress and fatigue no headache, no visual changes no speech or swallowing issues no chest pain, pressure or palpitations no shortness of breath, cough or wheezes distension and abdominal pain, diffuse with nausea & vomiting, no further bowel movement , constipation no dysuria, hematuria or frequency no focal joint pain or swelling no back pain, CVA tenderness or radicular pain no bruising, bleeding or rashes no focal signs of weakness or numbness or altered sensation no complaints of anxiety or depression.. Physical Exam Physical Exam: The patient appeared well nourished and normally developed. he is in moderate distress Vital signs as documented. Head exam is normocephalic atraumatic Neck is without JVD, thyromegaly, or carotid bruits. Lungs are clear to auscultation, no focal loss of breath sounds Cardiac exam, Rhythm is regular.. No murmurs, rubs or gallops. Abdominal exam reveals hyperactive bowel sounds, distension and diffuse tenderness without guarding Extremities are nonedematous and both pedal pulses are present Neurologic exam is alert and oriented, no focal loss of strength or sensation Skin is without bruises or rashes Psychologically is without concerns for anxiety or depression.. Results & Data Results & Data ([facility]) Vital Signs (Past 12 Hours) Vital Signs Temp Pulse Pulse Resp BP Pulse Ox 10/09/21 15:59 98.2 F 45 L 18 157/88 H 95 10/09/21 14:49 47 L 10/09/21 11:45 98.6 F 45 L 18 134/68 96 10/09/21 08:34 98.2 F 47 L 18 153/80 H 96 10/09/21 07:15 41 L PG Care Time/CCT Total # of Minutes Spent Total Time Spent with Patient: Total time spent is greater than 50% in coordination of care (as documented) at patient's floor/unit and/or counseling patient: Coding Level of Care Code 86060 Subseq Hosp Care Lvl 2 Diagnoses Small bowel obstruction K56.609 Cholecystitis K81.9 Bradycardia R00.1 Hypertension I10 Atrial fibrillation I48.91 Hypothyroidism E03.9 Vitamin D deficiency E55.9
--- NOTE | 2021-10-09 19:20 | XRay Report ---
KUB CLINICAL HISTORY: confirm NG placement COMPARISON STUDY: KUB performed earlier today. FINDINGS: Multiple loops of dilated small bowel are partially imaged on this examination. Tip of naso gastric tube projects over the proximal body of the stomach. Bibasilar opacities are noted with possi ble trace bilateral pleural effusions. IMPRESSION: 1. Tip of nasogastric tube projects over the proximal body of the stomach. The tube could be advanced an additional 3 cm. 2. Findings suggestive of a persistent small bowel obstruction. ACT 112: Negative or not required by law. Electronically signed by: Tom Branham M.D. 10/09/2021 7:19 PM
[2021-10-10] MEDS: PIPERACILLIN/TAZOBACTAM 3.375 GM in DEXTROSE 5% 100 ML IV SCH ×4 (00:24→23:32)
[2021-10-10] MEDS: LACTATED RINGER'S 1,000 ML IV SCH (01:05)
[2021-10-10] MEDS ORDERED: FAMOTIDINE/PF 20 MG/2 ML VIAL IV ONE (07:11)
[2021-10-10] MEDS ORDERED: ACETAMINOPHEN 1000 MG/100 ML IV IV ONE (07:12)
--- NOTE | 2021-10-10 07:51 | History & Physical Bridge Note ---
Date of Service October 10, 2021 History & Physical Bridge Note I have examined the patient, reviewed the History & Physical and in the interval since the performance of the History & Physical I have noted the following changes of clinical significance: no changes noted
[2021-10-10] MEDS ORDERED: ceFAZolin 2000MG 2,000 MG/15 ML SYR IV ONE (08:00)
[2021-10-10] MEDS: ONDANSETRON INJ 2 MG/ML 2 ML VIAL IV PRN ×2 (08:31→20:44)
[2021-10-10] MEDS: MoRPHine SULFATE 4 MG/ML 1 ML CARP\\VIAL IV PRN ×2 (08:31→20:44)
[2021-10-10] MEDS ORDERED: MIDAZOLAM HCL 1 MG/ML 2ML VIAL ONE (09:46)
[2021-10-10] MEDS ORDERED: LIDOCAINE 2% 2 ML VIAL/AMP(20MG/ML) INFIL ONE (09:46)
[2021-10-10] MEDS ORDERED: fentaNYL citrate 100 MCG/2 ML VIAL ONE ×3 (09:47→11:12)
[2021-10-10] MEDS ORDERED: ROCURONIUM BROMIDE 10 MG/ML 5 ML VIAL IV ONE ×6 (09:49→10:35)
[2021-10-10] MEDS ORDERED: LIDOCAINE 1% LOCAL 20 ML VIAL ONE (09:58)
[2021-10-10] MEDS ORDERED: BUPIVACAINE 0.5 % 5 MG/1 ML MPF 30ML VIAL ONE (09:58)
[2021-10-10] MEDS ORDERED: BACITRACIN OINT 15 GM TUBE ONE (09:58)
[2021-10-10] MEDS ORDERED: ATROPINE SULFATE 0.1 MG/ML 10ML SYR IV PRN (10:12)
[2021-10-10] MEDS ORDERED: ONDANSETRON INJ 2 MG/ML 2 ML VIAL IV PRN (10:12)
[2021-10-10] MEDS ORDERED: fentaNYL citrate 100 MCG/2 ML VIAL IV PRN (10:12)
[2021-10-10] MEDS ORDERED: PROMETHAZINE HCL 6.25 MG in SODIUM CHLORIDE 0.9% 50 ML IV PRN (10:12)
[2021-10-10] MEDS ORDERED: ePHEDrine sulfate 50 MG/ML AMP IV PRN (10:12)
[2021-10-10] MEDS ORDERED: HYDROmorphone INJ 2 MG/ML SYR/VIAL IV PRN (10:12)
--- NOTE | 2021-10-10 10:12 | Anesthesiology Consultation ---
Date of Service October 10, 2021 Assessment & Plan Chart Review Chart Review: Acceptable Risk for Surgery and Patient NOT seen in Pre Admission Testing Consults Requested none ASA ASA2 Proposed Anesthesia Anesthesia Type: General Risk / Benefits Reviewed With: PT / POA / Parent / Guardian, Accepts Plan and Informed Consent Obtained History Surgery Operation Date: 10/10/21 10:20 Proposed Procedures p Exploratory Laparotomy, Possible Bowel Resection, Possible Ostomy - Daniella Britt MD Height/Weight Height: 5 ft 10 in Weight: 92.7 kg Allergies Allergy/AdvReac Type Severity Reaction Status Date / Time No Known Allergies Allergy Unverified 10/04/21 17:03 Medications Home Medications Medication Instructions Recorded Confirmed Last Taken apixaban 5 mg tablet (Eliquis) 5 mg PO BID 10/04/21 10/04/21 Unknown cholecalciferol (vitamin D3) 25 25 mcg PO DAILY 10/04/21 10/04/21 Unknown mcg (1,000 unit) tablet (Vitamin D3) levothyroxine 75 mcg tablet 75 mcg PO DAILY 10/04/21 10/04/21 Unknown metoprolol tartrate 50 mg tablet 50 mg PO BID 10/04/21 10/04/21 Unknown Active Medications Generic Name Dose Route Start Last Admin Trade Name Freq PRN Reason Stop Dose Admin Lactated Ringer's 1,000 mls @ 80 mls/hr 10/04/21 22:32 10/10/21 01:05 Lr IV 11/03/21 22:31 80 mls/hr .[id number] MIRIAM Administration Piperacillin Sod/Tazobactam 115 mls @ 28.75 mls/hr 10/05/21 00:00 10/10/21 0 8:27 Sod 3.375 gm/ Dextrose IV 10/15/21 00:00 28.8 mls/hr Q8H MIRIAM Administration Protocol Famotidine 20 mg/ Syringe 5 mls @ 2.5 mls/min 10/04/21 23:00 10/09/21 23:36 IV 11/03/21 22:59 2.5 mls/min Q12H MIRIAM Administration Morphine Sulfate 4 mg 10/04/21 22:32 10/10/21 08:31 Morphine Sulfate 4 Mg/Ml 1 Ml Carp\Vial IV 10/18/21 22:31 4 mg Q3H PRN Administration Severe Pain Ondansetron HCl 4 mg 10/04/21 22:32 10/10/21 08:31 Ondansetron Inj 2 Mg/Ml 2 Ml Vial IV 11/03/21 22:31 4 mg Q6H PRN Administration Nausea NPO Date Last Intake of Fluids: 10/09/21 Time Last Intake of Fluids: 08:30 Date Last Intake of Solids: 10/03/21 Time Last Intake of Solids: 11:00 Past Medical History Medical History (Updated 10/05/21 @ 12:54 by Rob Weaver MD) Hypertension Hypothyroidism Vitamin D deficiency Exercise / Class Metabolic Activity II 4-5 Yardwork/Stairs/Walk up hill Past Family History Family History Other FH: throat cancer Past Surgical History Surgical History (Updated 10/04/21 @ 16:20 by Cassandra Elliott PA-C) No significant past surgical history Past Anesthesia History No Hx of Anesthesia Complications and No Family Hx of Anesthesia Complications History of PONV No Hx of PONV and No Hx of Motion Sickness Social History Smoking Status: Never smoker Do You Dip or Chew Tobacco: No Hx Alcohol Use: Yes Alcohol type: hard liquor alcohol intake frequency: 3 or more drinks per day Alcohol Intake Frequency Comment: last drink December 12, 2019 Hx Substance Use: No substance use type: does not use Physical Exam Vital Signs Last Vital Signs Temp 37.7 C H 10/10/21 09:38 Pulse 72 10/10/21 09:38 Resp 20 10/10/21 09:38 BP 161/94 H 10/10/21 09:38 Pulse Ox 94 10/10/21 09:38 ENMT Mouth: no dentition abnormality Thyromental Distance: > or= 3.5 Finger Breadths Mallampati Class: II Neck normal visual inspection Respiratory normal respiratory effort Auscultation: lungs clear to auscultation bilaterally Cardiovascular Rate/Rhythm: regular rate and regular rhythm Psychiatric Orientation: alert Testing Laboratory Results 10/09/21 06:48 10/09/21 06:48 Urine Color Yellow 10/04/21 21:34 Urine Appearance Clear (Clear) 10/04/21 21:34 Urine pH 8.5 (4.5-7.5) H 10/04/21 21:34 Ur Specific [place] > 1.045 (1.000-1.030) H 10/04/21 21:34 Urine Protein Negative (Negative) 10/04/21 21:34 Urine Glucose (UA) Negative (Negative) 10/04/21 21:34 Urine Ketones Trace (Negative) H 10/04/21 21:34 Urine Nitrite Negative (Negative) 10/04/21 21:34 Ur Leukocyte Esterase Negative (Negative) 10/04/21 21:34 Blood Type O Positive 10/10/21 07:21 Antibody Screen NEGATIVE 10/10/21 07:21
[2021-10-10] MEDS ORDERED: SUGAMMADEX SODIUM 200 MG/2 ML VIAL IV ONE (10:51)
--- NOTE | 2021-10-10 11:10 | Post Operative Brief Note ---
Immediate Post Op Note v1 Date of Surgery October 10, 2021 Pre & Post Diagnosis Operation Date: 10/10/21 10:20 Pre-Op Diagnosis: Small Bowel Obstruction Post-Op Diagnosis: Small Bowel Obstruction I identified the patient and participated in the time-out.: Yes Procedure Operation Date: 10/10/21 10:20 Actual Procedures p Exploratory Laparotomy, lysis of adhesion, resection abdominal wall lipoma, (Not Applicable) - Daniella Britt MD Surgeon Daniella Britt MD Physical Therapy Teacher MAL Blanchard Estimated Blood Loss 10 Findings Consistent with Post-Op Diagnosis adhesion caused SBO, abdominal wall lipoma size about 2x2cm, Fluids 800ml Specimens abdominal wall, lipoma Drains Elder Catheter (inserted after induction of anesthesia by Nhan Hall RN without difficulty) Anesthesia Type General Complications none Disposition Accompanied Patient To Recovery: Yes
[2021-10-10] MEDS ORDERED: PROPOFOL IV EMULSION 10 MG/ML 20 ML VIAL IV ONE (11:39)
[2021-10-10] MEDS ORDERED: DEXAMETHASONE SOD INJ 4 MG/ML VIAL ONE (11:39)
[2021-10-10] MEDS ORDERED: ONDANSETRON INJ 2 MG/ML 2 ML VIAL ONE (11:39)
--- NOTE | 2021-10-10 11:57 | Operative Report (OR) ---
DATE OF PROCEDURE: 10/10/2021 PREOPERATIVE DIAGNOSIS: Small-bowel obstruction. POSTOPERATIVE DIAGNOSES: Small-bowel obstruction caused by adhesion and abdominal wall lipoma, lipoma size about 2 x 2 cm. OPERATIVE PROCEDURE: Exploratory laparotomy, lysis of adhesion, resection of abdominal wall lipoma. SURGEON: Daniella Britt MD. BRIDAL SALES CONSULTANT: Massiel Peacock PA-C. ANESTHESIA: General. ESTIMATED BLOOD LOSS: About 10 mL. FINDINGS: Adhesion caused small-bowel obstruction, abdominal wall lipoma size about 2 x 2 cm. COMPLICATIONS: None. INDICATIONS FOR THE PROCEDURE: This is a 56-year-old gentleman who was admitted to the hospital for small-bowel obstruction and the patient had 5 days of conservative treatment and the small bowel was not resolved, and I recommended to do exploratory laparotomy, possible bowel resection, possible stoma. I did talk to the patient about the benefit, risk, alternate procedure. I indicated the risks may include, but not limited to, such as bleeding, infection, injury to other organs, recurrent bowel obstruction, incisional hernia, DVT, stroke, myocardial infarction, and even . The patient understands. He signed informed consent and I answered all questions. DETAILS OF PROCEDURE: After we identified the patient and verified the procedure, we brought the patient to the OR, put the patient in the supine position on the OR table. The patient received SCD on bilateral legs to prevent DVT. Also, the patient received 2 grams of Ancef IV for prophylactic antibiotic and the patient received general anesthesia without difficulty and also patient received Elder catheter insertion. The patient's abdomen was prepped and draped in routine sterile fashion. After timeout, I made a midline incision of about 12 cm in length, dissected the subcutaneous layer, reached the fascial layer, opened the fascial layer, opened the peritoneum, got in the abdomen without difficulty. There was some free fluid around the abdomen. We suctioned the fluid out and the patient had significantly dilated small bowel. The small bowel diameter about 4 cm and then we examined the small bowel beginning from the duodenum to the whole small bowel. Then, we found the patient had a bowel obstruction caused by mesenteric inflammation, adhesions of the small bowel in the right lower quadrant area. Once we lysed the adhesion, the distal small bowel is patent. The proximal small bowel decompressed and goes to the distal small bowel and rechecked, no other abnormal findings. Also, I want to mention that when we made the incision on the abdomen, before reaching the fascial layer, we found the patient had one lipoma in the abdominal wall. The lipoma size about 2 x 2 cm, so I resected the lipoma and sent to pathology. Once we suctioned all the fluid out and hemostasis was obtained, then I closed the fascia by using PDS continuous running, closed subcutaneous layer by using 2-0 Vicryl continuous running, closed skin by using staple. Then, we put the dressing on. The patient tolerated the procedure well. All instrument, needle and sponge counts were correct x2 at the end of the case. The patient was transferred to the recovery room in stable condition. After the procedure, I did talk to the patient about the OR finding and the procedure we did, patient understands. warehouse administrative assistant Massiel is necessary for this procedure, her roles are attraction exposure, Thanks, Job ID: [id number] [facility]
[2021-10-10] MEDS: FAMOTIDINE 20 MG in SYRINGE 3 ML IV SCH ×2 (12:03→22:46)
[2021-10-10] MEDS: D5W AND 1/2NSS + 20MEQ KCL 20 MEQ/1,000 ML BAG IV SCH ×2 (13:57→22:46)
[2021-10-10] MEDS ORDERED: MoRPHine SULFATE 2 MG/ML CARP IV PRN (14:20)
--- NOTE | 2021-10-10 14:38 | Anesthesiology Progress Note ---
Date of Service October 10, 2021 Anesthesia Post Procedure Vital Signs Vital Signs: Temp Pulse Pulse Pulse Resp BP BP 10/10/21 12:42 37.4 C 64 19 136/84 10/10/21 12:13 37.4 C 66 18 159/91 H 10/10/21 11:45 36.4 C L 63 16 162/97 H 10/10/21 11:35 69 16 155/100 H 10/10/21 11:25 61 16 155/95 H 10/10/21 11:17 36.3 C L 68 16 167/105 H 10/10/21 09:38 37.7 C H 72 20 161/94 H 10/10/21 09:18 37.1 C 52 L 18 151/84 H 10/10/21 08:57 47 L 10/10/21 03:08 37.1 C 45 L 18 157/85 H 10/09/21 23:47 37.4 C 49 L 18 146/71 H 10/09/21 22:20 53 L 10/09/21 15:59 36.8 C 45 L 18 157/88 H 10/09/21 14:49 47 L Pulse Ox 10/10/21 12:42 94 10/10/21 12:13 94 10/10/21 11:45 92 10/10/21 11:35 89 L 10/10/21 11:25 95 10/10/21 11:17 96 10/10/21 09:38 94 10/10/21 09:18 93 10/10/21 08:57 10/10/21 03:08 94 10/09/21 23:47 95 10/09/21 22:20 10/09/21 15:59 95 10/09/21 14:49 Pain Intensity Abdomen: Pain Intensity: 4 Transfer of Care Handoff Completed per policy Notes Mental Status: alert / awake / arousable Patient Amnestic to Procedure: Yes Nausea / Vomiting: adequately controlled Pain: adequately controlled Airway Patency, RR, SpO2: stable & adequate BP & HR: stable & adequate Hydration State: stable & adequate Anesthetic Complications: no major complications apparent
[2021-10-10] MEDS: ACETAMINOPHEN 1000 MG/100 ML IV IV SCH ×2 (14:57→22:46)
[2021-10-10] MEDS ORDERED: METOPROLOL TARTRATE 1 MG/ML VIAL IV PRN (16:43)
--- NOTE | 2021-10-10 16:49 | Hospitalist Progress Note ---
Date of Service October 10, 2021 Assessment & Plan (1) Small bowel obstruction: Plan: Suspected SBO CT: Partial small bowel obstruction and left lower quadrant suspect due to adhesions. Cholelithiasis with wall thickening and middle samira cholecystic edema, cholecystitis cannot be excluded. Recommended for gallbladder ultrasound. - GB US: Limited evaluation. Gallbladder wall thickening is seen. Sonographic Sanders's sign is clinical. In the appropriate setting, findings are suggestive of acute cholecystitis. If clinical uncertainty remains, HIDA study can be performed. - HIDA: 1. No evidence for acute cholecystitis. 2. Visualization of gallbladder activity following morphine administration. This suggests chronic cholecystitis. lap 10/10/21 with lysis of adhesions and resection of abdominal wall lipoma that was discovered incidentally on incision (2) Cholecystitis: Plan: Chronic cholecystitis, no acute cholecystitis appreciated. . (3) Bradycardia: Plan: Bradycardia with heart rate as low as 30s overnight, patient asymptomatic On telemetry review concern for some dropped QRS complexes, 2-1 block type II block. Metoprolol held indefinitely Cardiology consulted EKG/strips reviewed. Unable to completely distinguish Mobitz 1 from 2 based on rhythm, but more suspicious for Mobitz 1 without significant purkinje disease. Hold MTP indefinitely, would ambulate as able and suspect conduction will improve with rate. Follow for clinical sx or pauses >2.5s - Lyme serology negative Continues to be bradycardic in the evenings, improves with ambulation and during the day. No pacer indicated at this time. (4) Hypertension: Plan: - Metoprolol discontinued with bradycardia as above - (5) Atrial fibrillation: Plan: Confirmed history of this with [facility] Patient has a history of paroxysmal A. fib Has been prescribed Eliquis and metoprolol for A. fib (previously reported metoprolol was for his thyroid this is incorrect) but patient takes his own med and cell and is very poorly compliant with these medications. While Eliquis is on order takes this rarely throughout the week. Metoprolol held for concern of heart block above - Of note, patient reports that he was briefly considered to have atrial fibrillation in the setting of acute Lyme disease which was treated and has not been on Eliquis for greater than 1 year. Called and reviewed with [facility], patient has a history of an episode of suspected A. fib and was recommended to be on metoprolol/Eliquis but is poorly compliant with medications. Per patient has not been in A. fib for over a year, and patient per records seems to have been regular for the last year. Discussed with nursing staff, no EKG to confirmed A. fib or not, or if it has ever recurred. [id number] of 1. Does report that he has not had any confirmed A. fib outside of the initial episode, and that was thought to be provoked in the setting of Lyme disease. He also reports that even if strongly recommended he does not intend to take anticoagulation as it makes him feel poorly. At this point given single episode, [id number] 1, and sinus rhythm will defer anticoagulation but patient is agreeable to mobile telemetry once discharged to quantify A. fib burden if occult. (6) Hypothyroidism: Plan: Synthroid 75 mcg daily Repeat TSH normal (7) Vitamin D deficiency: Plan: Hold 25 mcg daily supplement while n.p.o. Admission and Anticipated Discharge Date Admission Date: October 04, 2021 Subjective pt was seen postoperatively after lysis of adhesions, still groggy, seems less distended has dressing in place Review of Systems Review of Systems: moderate distress and fatigue no headache, no visual changes no speech or swallowing issues no chest pain, pressure or palpitations no shortness of breath, cough or wheezes no c/o abdominal pain no dysuria, hematuria or frequency no focal joint pain or swelling no back pain, CVA tenderness or radicular pain no bruising, bleeding or rashes no focal signs of weakness or numbness or altered sensation no complaints of anxiety or depression.. Physical Exam Physical Exam: The patient appeared well nourished and normally developed. he is in moderate distress Vital signs as documented. Head exam is normocephalic atraumatic Neck is without JVD, thyromegaly, or carotid bruits. Lungs are clear to auscultation, no focal loss of breath sounds Cardiac exam, Rhythm is regular.. No murmurs, rubs or gallops. Abdominal exam reveals hypoactive bowel sounds,mild tenderness without guarding, ngt in place Extremities are nonedematous and both pedal pulses are present Neurologic exam is alert and oriented, no focal loss of strength or sensation Skin is without bruises or rashes Psychologically is without concerns for anxiety or depression.. Results & Data Results & Data ([facility]) Vital Signs (Past 12 Hours) Vital Signs Temp Pulse Pulse Pulse Resp BP BP 10/10/21 15:32 99.3 F 62 18 141/88 H 10/10/21 15:14 52 L 10/10/21 12:42 99.3 F 64 19 136/84 10/10/21 12:13 99.3 F 66 18 159/91 H 10/10/21 11:45 97.5 F L 63 16 162/97 H 10/10/21 11:35 69 16 155/100 H 10/10/21 11:25 61 16 155/95 H 10/10/21 11:17 97.3 F L 68 16 167/105 H 10/10/21 09:38 99.9 F H 72 20 161/94 H 10/10/21 09:18 98.8 F 52 L 18 151/84 H 10/10/21 08:57 47 L Pulse Ox 10/10/21 15:32 95 10/10/21 15:14 10/10/21 12:42 94 10/10/21 12:13 94 10/10/21 11:45 92 10/10/21 11:35 89 L 10/10/21 11:25 95 10/10/21 11:17 96 10/10/21 09:38 94 10/10/21 09:18 93 10/10/21 08:57 PG Care Time/CCT Total # of Minutes Spent Total Time Spent with Patient: Total time spent is greater than 50% in coordination of care (as documented) at patient's floor/unit and/or counseling patient: Coding Level of Care Code 74548 Subseq Hosp Care Lvl 2 Diagnoses Small bowel obstruction K56.609 Cholecystitis K81.9 Bradycardia R00.1 Hypertension I10 Atrial fibrillation I48.91 Hypothyroidism E03.9 Vitamin D deficiency E55.9
[2021-10-10] MEDS ORDERED: METOPROLOL TARTRATE 1 MG/ML VIAL IV SCH (18:00)
[2021-10-10] MEDS ORDERED: METOPROLOL TARTRATE 50 MG TAB PO SCH (21:00)
[2021-10-10] MEDS ORDERED: APIXABAN 5 MG TABLET PO SCH (21:00)
[2021-10-11] MEDS: MoRPHine SULFATE 4 MG/ML 1 ML CARP\\VIAL IV PRN ×4 (02:47→21:50)
[2021-10-11] MEDS: ONDANSETRON INJ 2 MG/ML 2 ML VIAL IV PRN (02:47)
[2021-10-11] MEDS: ACETAMINOPHEN 1000 MG/100 ML IV IV SCH ×3 (06:10→21:51)
[2021-10-11] MEDS ORDERED: LEVOTHYROXINE SODIUM 75 MCG TABLET PO SCH (06:30)
[2021-10-11] MEDS: PIPERACILLIN/TAZOBACTAM 3.375 GM in DEXTROSE 5% 100 ML IV SCH (08:02)
[2021-10-11] MEDS: D5W AND 1/2NSS + 20MEQ KCL 20 MEQ/1,000 ML BAG IV SCH ×2 (08:03→17:06)
[2021-10-11] MEDS ORDERED: CHOLECALCIFEROL 1,000 UNITS 25 MCG TAB PO SCH (09:00)
[2021-10-11] MEDS ORDERED: TPN/PPN CONSULT PHARMACY STA (09:02)
[2021-10-11] MEDS ORDERED: TPN/PPN CONSULT PHARMACY PRN (09:43)
--- NOTE | 2021-10-11 09:54 | Surgery Progress Note ---
Date of Service October 11, 2021 Assessment & Plan (1) Small bowel obstruction: Plan: Postop day #1 status post exploratory laparotomy with lysis of adhesions Afebrile, vital signs stable Moderate postop pain at midline incision controlled with IV morphine and IV Tylenol No nausea no vomiting NG tube output with 400 cc since surgery Passing some flatus Plan: Continue pain management as needed, will start oral pain medication once NG tube removed Continue NG tube to LIS, possibly discontinue tomorrow and start clear liquids Continue IV fluids while npo Continue current medical management Incentive spirometry and SCDs for DVT prophylaxis OOB to chair and ambulate in room Dr. Wood covering this weekend Dr. Britt has seen and examined pt, agrees with above. Admission and Anticipated Discharge Date Admission Date: October 04, 2021 Subjective Moderate soreness at midline incision site preoperative pain has resolved. No nausea no vomiting Abdomen feels soft nondistended Passing gas last evening no bowel movement since surgery Physical Exam Constitutional: WD/WN, vitals as above no acute distress and not ill appearing Neck: normal visual inspection and trachea midline Respiratory: normal respiratory effort; no respiratory distress Gastrointestinal (Abdomen): Inspection/Auscultation: abdomen normal to inspection, + abdomen distended (Mildly), + abdominal surgical incision (Covered with a dressing with mild spotting present) and + hypoactive bowel sounds; + abnormal bowel sounds Percussion/Palpation: + abdomen tender (Midline incision) and abdomen soft; no guarding and abdomen not rigid Skin: no rashes, warm and dry Psychiatric: A+Ox3, euthymic affect Results & [facility] ([facility]) Vital Signs (Past 12 Hours) Vital Signs Temp Pulse Pulse Resp BP Pulse Ox 10/11/21 08:00 43 L 10/11/21 07:39 36.8 C 52 L 16 133/67 92 10/11/21 04:00 36.9 C 50 L 18 144/82 H 92 10/11/21 01:33 51 L 10/10/21 23:00 36.8 C 55 L 18 134/78 93
[2021-10-11] MEDS ORDERED: oxyCODONE/ACETAMINOPHEN 5mg/325mg TAB PO PRN (10:44)
[2021-10-11] MEDS: FAMOTIDINE 20 MG in SYRINGE 3 ML IV SCH ×2 (11:09→21:54)
[2021-10-11 11:11] LABS: Basophils # (auto) 0.01 K/uL (0-0.2); Basophils % (auto) 0.1 %; Eosinophils # (auto) 0.09 K/uL (0-0.5); Eosinophils % (auto) 1.3 %; Hematocrit (blood only) 37.9 % (42-52); Hemoglobin 13.4 g/dL (14.0-18.0); Immature Granulocytes # (auto) 0.03 K/uL (0.00-0.02); Immature Granulocytes % (auto) 0.4 %; Lymphocytes # (auto) 0.99 K/uL (1.2-3.4); Lymphocytes % (auto) 14.2 %; Mean Corpuscular Hgb Conc 35.4 g/dL (32-36); Mean Corpuscular Volume 84.8 fL (80-100); Mean Platelet Volume 10.7 fL (7.4-10.4); Monocytes % (auto) 8.6 %; Neutrophils # (auto) 5.27 K/uL (1.4-6.5); Neutrophils % (auto) 75.4 %; Platelet Count 157 K/uL (130-400); RDW Coefficient of Variation 12.5 % (11.5-14.5); RDW Standard Deviation 38.8 fL (36.4-46.3); Red Blood Count 4.47 M/uL (4.7-6.1); White Blood Count 6.99 K/uL (4.8-10.8)
[2021-10-11 11:29] LABS: Albumin Globulin Ratio 1.5 (0.9-2); Albumin Level 3.2 gm/dl (3.4-5.0); BUN Creatinine Ratio 7.3 (10-20); Bilirubin,Total 0.4 mg/dl (0.2-1.0); Calcium 7.8 mg/dl (8.5-10.1); Creatinine Clr Calc Pharmacy 117.5 ml/min; Est GFR (African American) 115.4 ml/min; Est GFR (Non-African American) 99.6 ml/min; Globulin 2.2 gm/dl (2.5-4.0); Potassium 3.4 mmol/L (3.5-5.1); Total Protein 5.4 gm/dl (6.0-8.3)
[2021-10-11 11:32] LABS: Potassium 3.4 mmol/L (3.5-5.1)
[2021-10-11 11:33] LABS: Calcium 7.8 mg/dl (8.5-10.1); Creatinine Clr Calc Pharmacy 116.1 ml/min; Est GFR (African American) 114.8 ml/min; Est GFR (Non-African American) 99.1 ml/min; Magnesium 1.8 mg/dl (1.7-2.4); Phosphorus 1.3 mg/dl (2.5-4.9)
[2021-10-11] MEDS ORDERED: POTASSIUM PHOS 3 MMOL/1 ML INFUSION IV STA (11:35)
[2021-10-11] MEDS ORDERED: POTASSIUM PHOSPHATE 15 MMOL in SODIUM CHLORIDE 0.9% 250 ML IV STA (11:41)
[2021-10-11] MEDS ORDERED: DEXTROSE 10% 1,000 ML IV PRN (16:00)
--- NOTE | 2021-10-11 17:26 | Hospitalist Progress Note ---
Date of Service October 11, 2021 Assessment & Plan (1) Small bowel obstruction: Plan: Suspected SBO CT: Partial small bowel obstruction and left lower quadrant suspect due to adhesions. Cholelithiasis with wall thickening and middle samira cholecystic edema, cholecystitis cannot be excluded. Recommended for gallbladder ultrasound. - GB US: Limited evaluation. Gallbladder wall thickening is seen. Sonographic Sanders's sign is clinical. In the appropriate setting, findings are suggestive of acute cholecystitis. If clinical uncertainty remains, HIDA study can be performed. - HIDA: 1. No evidence for acute cholecystitis. 2. Visualization of gallbladder activity following morphine administration. This suggests chronic cholecystitis. lap 10/10/21 with lysis of adhesions and resection of abdominal wall lipoma that was discovered incidentally on incision has not eaten for a week, markedly low phosphorus, will replete and consider ppn on 10/12 if not eating well (2) Cholecystitis: Plan: Chronic cholecystitis, no acute cholecystitis appreciated. . (3) Bradycardia: Plan: Bradycardia with heart rate as low as 30s overnight, patient asymptomatic Metoprolol held indefinitely Cardiology consulted suspicious for Mobitz 1 without significant purkinje disease. No pacer indicated at this time. - Lyme serology negative (4) Hypertension: Plan: - Metoprolol discontinued with bradycardia as above (5) Atrial fibrillation: Plan: Confirmed history of this with [facility] Patient has a history of paroxysmal A. fib Has been prescribed Eliquis and metoprolol for A. fib (previously reported metoprolol was for his thyroid this is incorrect) but patient takes his own med and cell and is very poorly compliant with these medications. While Eliquis is on order takes this rarely throughout the week. Metoprolol held for concern of heart block above - [id number] 1, and sinus rhythm will defer anticoagulation but patient is agreeable to mobile telemetry once discharged to quantify A. fib burden if occult. (6) Hypothyroidism: Plan: Synthroid 75 mcg daily Repeat TSH normal (7) Vitamin D deficiency: Plan: Hold 25 mcg daily supplement while n.p.o. Admission and Anticipated Discharge Date Admission Date: October 04, 2021 Subjective Moderate soreness at midline incision site preoperative pain has resolved. No nausea no vomiting Abdomen feels soft nondistended Passing gas last evening no bowel movement since surgery Review of Systems Review of Systems: moderate distress and fatigue no headache, no visual changes no speech or swallowing issues no chest pain, pressure or palpitations no shortness of breath, cough or wheezes no c/o abdominal pain no dysuria, hematuria or frequency no focal joint pain or swelling no back pain, CVA tenderness or radicular pain no bruising, bleeding or rashes no focal signs of weakness or numbness or altered sensation no complaints of anxiety or depression.. Physical Exam Physical Exam: The patient appeared well nourished and normally developed. he is in moderate distress Vital signs as documented. Head exam is normocephalic atraumatic Neck is without JVD, thyromegaly, or carotid bruits. Lungs are clear to auscultation, no focal loss of breath sounds Cardiac exam, Rhythm is regular.. No murmurs, rubs or gallops. Abdominal exam reveals hypoactive bowel sounds,mild tenderness without guarding, ngt in place Extremities are nonedematous and both pedal pulses are present Neurologic exam is alert and oriented, no focal loss of strength or sensation Skin is without bruises or rashes Psychologically is without concerns for anxiety or depression.. Results & Data Results & Data ([facility]) Vital Signs (Past 12 Hours) Vital Signs Temp Pulse Pulse Resp BP Pulse Ox 10/11/21 16:04 51 L 10/11/21 15:14 99.0 F 55 L 18 146/93 H 91 10/11/21 11:32 98.6 F 47 L 18 137/83 91 10/11/21 08:00 43 L 10/11/21 07:39 98.2 F 52 L 16 133/67 92 PG Care Time/CCT Total # of Minutes Spent Total Time Spent with Patient: Total time spent is greater than 50% in coordination of care (as documented) at patient's floor/unit and/or counseling patient: Coding Level of Care Code 20989 Subseq Hosp Care Lvl 2 Diagnoses Small bowel obstruction K56.609 Cholecystitis K81.9 Bradycardia R00.1 Hypertension I10 Atrial fibrillation I48.91 Hypothyroidism E03.9 Vitamin D deficiency E55.9
[2021-10-12] MEDS: D5W AND 1/2NSS + 20MEQ KCL 20 MEQ/1,000 ML BAG IV SCH ×2 (02:42→12:40)
[2021-10-12] MEDS ORDERED: POTASSIUM PHOS 3 MMOL/1 ML INFUSION IV STA (03:13)
[2021-10-12] MEDS ORDERED: POTASSIUM PHOSPHATE 6 MMOL in SODIUM CHLORIDE 0.9% 250 ML IV ONE (03:30)
[2021-10-12] MEDS: MoRPHine SULFATE 4 MG/ML 1 ML CARP\\VIAL IV PRN ×4 (04:39→20:58)
[2021-10-12] MEDS: ONDANSETRON INJ 2 MG/ML 2 ML VIAL IV PRN ×2 (04:40→18:30)
--- NOTE | 2021-10-12 05:44 | Surgery Progress Note ---
Date of Service October 12, 2021 Assessment & Plan (1) Small bowel obstruction: Plan: Patient is status post exploratory laparotomy secondary to small bowel obstruction on 10/10/2021 (postop day #2 ( Continue analgesics Continue antiemetics We will consider removing NG tube if bowel function continues to improve Continue IV fluids until patient can maintain adequate hydration via oral intake Check a.m. labs when available Increase activity as able as above. +flatus. still distended. keep ngt. will repeat KUB tomorrow. Admission and Anticipated Discharge Date Admission Date: October 04, 2021 Subjective Patient is resting comfortably in bed. He denies any shortness of breath. He denies any bowel movement since surgery but began passing flatus a few hours ago. No nausea or vomiting is reported. He does note some pain near surgical incision. Physical Exam Gastrointestinal (Abdomen): Abdomen is mildly distended. Bowel sounds are hypoactive. Patient has appropriate pain near his surgical incision which is intact with sarah. Results & Data ([facility]) Vital Signs (Past 12 Hours) Vital Signs Temp Pulse Pulse Pulse Resp BP Pulse Ox 10/12/21 04:54 37.3 C 60 18 152/87 H 90 10/12/21 04:05 58 L 10/11/21 23:00 37.1 C 58 L 20 134/87 92 10/11/21 19:00 36.8 C 55 L 20 152/94 H 91 PG Care Time/CCT Total # of Minutes Spent Total Time Spent with Patient: Total time spent is greater than 50% in coordination of care (as documented) at patient's floor/unit and/or counseling patient: Coding Level of Care Code None Diagnoses Small bowel obstruction K56.609
[2021-10-12] MEDS: ACETAMINOPHEN 1000 MG/100 ML IV IV SCH ×3 (06:07→22:04)
[2021-10-12 06:58] LABS: Hematocrit (blood only) 41.8 % (42-52); Hemoglobin 14.3 g/dL (14.0-18.0); Mean Corpuscular Hemoglobin 29.4 pg (25-34); Mean Corpuscular Hgb Conc 34.2 g/dL (32-36); Mean Corpuscular Volume 85.8 fL (80-100); Mean Platelet Volume 10.6 fL (7.4-10.4); Platelet Count 172 K/uL (130-400); Red Blood Count 4.87 M/uL (4.7-6.1); White Blood Count 5.86 K/uL (4.8-10.8)
[2021-10-12 07:52] LABS: BUN Creatinine Ratio 5.9 (10-20); Calcium 7.7 mg/dl (8.5-10.1); Creatinine Clr Calc Pharmacy 113.4 ml/min; Est GFR (African American) 113.7 ml/min; Est GFR (Non-African American) 98.1 ml/min; Magnesium 1.7 mg/dl (1.7-2.4); Phosphorus 1.9 mg/dl (2.5-4.9); Potassium 3.7 mmol/L (3.5-5.1)
[2021-10-12] MEDS ORDERED: DEXTROSE 10% 1,000 ML IV PRN (11:04)
[2021-10-12] MEDS: FAMOTIDINE 20 MG in SYRINGE 3 ML IV SCH ×2 (11:13→22:03)
[2021-10-12] MEDS ORDERED: PERIPHERAL TPN IV SCH (16:00)
[2021-10-12] MEDS ORDERED: D5W IV SCH (16:00)
[2021-10-12] MEDS ORDERED: AMINO ACIDS 4.25% IV SCH (16:00)
--- NOTE | 2021-10-12 16:30 | Hospitalist Progress Note ---
Date of Service October 12, 2021 Assessment & Plan (1) Small bowel obstruction: Plan: Postop day 2 status post exploratory laparotomy. NG tube still in situ, draining bilious liquid. Bowel function still has not returned. Will continue IV fluids, antiemetics. Appreciate general surgery commendations. KUB tomorrow (2) Cholecystitis: Plan: Chronic cholecystitis, no acute cholecystitis appreciated. . (3) Bradycardia: Plan: Bradycardia with heart rate as low as 30s overnight, patient asymptomatic Metoprolol held indefinitely Cardiology consulted suspicious for Mobitz 1 without significant purkinje disease. No pacer indicated at this time. - Lyme serology negative (4) Hypertension: Plan: - Metoprolol discontinued with bradycardia as above (5) Atrial fibrillation: Plan: Confirmed history of this with [facility] Patient has a history of paroxysmal A. fib Has been prescribed Eliquis and metoprolol for A. fib (previously reported metoprolol was for his thyroid this is incorrect) but patient takes his own med and cell and is very poorly compliant with these medications. While Eliquis is on order takes this rarely throughout the week. Metoprolol held for concern of heart block above - [id number] 1, and sinus rhythm will defer anticoagulation but patient is agreeable to mobile telemetry once discharged to quantify A. fib burden if occult. (6) Hypothyroidism: Plan: Synthroid 75 mcg daily Repeat TSH normal (7) Vitamin D deficiency: Plan: Hold 25 mcg daily supplement while n.p.o. Admission and Anticipated Discharge Date Admission Date: October 04, 2021 Review of Systems Review of Systems: All systems reviewed are negative, apart from the ones contained in the history. Physical Exam Physical Exam: The patient is awake, alert and oriented 3, well developed and well nourished, normocephalic and atraumatic, lying in bed and in no acute distress. HEENT--PERRL, EOMI, mucous membranes and oropharynx mildly dry Neck--supple. No JVD. No bruits. Thyroid normal, trachea midline, no adenopathy. Heart--normal S1 and S2. No murmurs, rubs or gallops. Lungs--clear bilaterally, no respiratory distress, no accessory muscle use. Abdomen--distended Extremities--no cyanosis or clubbing. No edema. Dermatologic--normal skin turgor, normal color, no abnormal lymph nodes, no rash. Neurologic--cranial nerves II through XII grossly intact. Rheumatologic--normal range of motion. Psychiatric--normal affect. Results & Data Results & Data ([facility]) Vital Signs (Past 12 Hours) Vital Signs Temp Pulse Pulse Pulse Resp BP Pulse Ox 10/12/21 15:12 99.0 F 59 L 20 153/72 H 90 10/12/21 11:43 98.1 F 60 18 148/90 H 90 10/12/21 07:34 97.5 F L 53 L 18 140/88 93 10/12/21 07:26 56 L 10/12/21 04:54 99.1 F 60 18 152/87 H 90 PG Care Time/CCT Total # of Minutes Spent Total Time Spent with Patient: Total time spent is greater than 50% in coordination of care (as documented) at patient's floor/unit and/or counseling patient: Coding Level of Care Code 45397 Subseq Hosp Care Lvl 2 Diagnoses Small bowel obstruction K56.609 Cholecystitis K81.9 Bradycardia R00.1 Hypertension I10 Atrial fibrillation I48.91 Hypothyroidism E03.9 Vitamin D deficiency E55.9 Time Spent (min) 35
[2021-10-12] MEDS: CLINOLIPID 20% IV FAT EMULSION 100 ML IV SCH ×2 (16:51→19:26)
[2021-10-13] MEDS: MoRPHine SULFATE 4 MG/ML 1 ML CARP\\VIAL IV PRN ×3 (02:49→20:23)
[2021-10-13] MEDS: ONDANSETRON INJ 2 MG/ML 2 ML VIAL IV PRN (02:55)
[2021-10-13] MEDS: ACETAMINOPHEN 1000 MG/100 ML IV IV SCH (05:38)
--- NOTE | 2021-10-13 06:02 | Surgery Progress Note ---
Date of Service October 13, 2021 Assessment & Plan (1) Small bowel obstruction: Plan: Patient is status post exploratory laparotomy secondary to small bowel obstruction on 10/10/2021 (postop day #3) Continue analgesics Continue antiemetics KUB performed yesterday showed findings consistent with ileus. Repeat KUB is scheduled for this morning but is pending. Based on patient's physical exam I suspect he continues to have an ileus. Maintain NG tube until improved bowel function and improvement in abdominal exam Parenteral nutrition has been ordered by the internal medicine service. Would continue this until oral intake is adequate. A.m. labs are pending Increase activity as able as above. pt with distension. some flatus. no bowel movment xray shows ileus wound looks good keep NGT. encourage ambulation. Admission and Anticipated Discharge Date Admission Date: October 04, 2021 Subjective Patient is currently resting in bed. He reports he is passing some flatus but has not had a bowel movement since surgery. He does report some abdominal pain near his surgical incision. No nausea or vomiting noted he denies any fevers, shakes, or chills. Physical Exam Gastrointestinal (Abdomen): Abdomen is mildly distended with hypoactive bowel sounds. Patient has appropriate pain near surgical incision. NG tube is in place which has drained approximately 1600 cc over the past 24 hours and 350 cc over the past shift. Results & Data ([facility]) Vital Signs (Past 12 Hours) Vital Signs Temp Pulse Pulse Resp BP Pulse Ox 10/13/21 03:30 37.3 C 54 L 20 144/87 H 92 10/12/21 22:16 57 L 10/12/21 22:00 37.4 C 49 L 20 144/85 H 91 10/12/21 19:00 37.2 C 54 L 20 156/88 H 92 PG Care Time/CCT Total # of Minutes Spent Total Time Spent with Patient: Total time spent is greater than 50% in coordination of care (as documented) at patient's floor/unit and/or counseling patient: Coding Level of Care Code None Diagnoses Small bowel obstruction K56.609
[2021-10-13 06:31] LABS: Hematocrit (blood only) 40.2 % (42-52); Hemoglobin 14.1 g/dL (14.0-18.0); Mean Corpuscular Hemoglobin 30.1 pg (25-34); Mean Corpuscular Hgb Conc 35.1 g/dL (32-36); Mean Corpuscular Volume 85.9 fL (80-100); Mean Platelet Volume 10.4 fL (7.4-10.4); Platelet Count 171 K/uL (130-400); RDW Coefficient of Variation 12.8 % (11.5-14.5); RDW Standard Deviation 40.7 fL (36.4-46.3); Red Blood Count 4.68 M/uL (4.7-6.1); White Blood Count 4.35 K/uL (4.8-10.8)
[2021-10-13 06:50] LABS: BUN Creatinine Ratio 13.8 (10-20); Calcium 7.6 mg/dl (8.5-10.1); Creatinine Clr Calc Pharmacy 147.8 ml/min; Est GFR (African American) 126.9 ml/min; Est GFR (Non-African American) 109.5 ml/min; Magnesium 1.8 mg/dl (1.7-2.4); Phosphorus 2.3 mg/dl (2.5-4.9); Potassium 3.7 mmol/L (3.5-5.1)
--- NOTE | 2021-10-13 07:03 | XRay Report ---
KUB CLINICAL HISTORY: Small bowel obstruction. COMPARISON STUDY: KUB October 12, 2021. FINDINGS: Tip of nasogastric tube is within the body of the stomach. Surgical skin sarah are noted. Multiple loops of moderately dilated small bowel measure up to 5.7 cm in caliber. Findings are simil ar to prior study. There is gas within portions of the colon and rectum. Small bowel left pleural eff usion is noted. There is a trace right pleural effusion. Bilateral lower lung opacities are greater o n the left. IMPRESSION: 1. No significant change in moderate small bowel dilatation. This favors a small bowel obstruction. A postoperative ileus could appear similar. 2. Small left and trace right pleural effusions with bilateral lower lung airspace opacities, greater on the left. ACT 112: Negative or not required by law. Electronically signed by: Tom Branham M.D. 10/13/2021 7:02 AM
--- NOTE | 2021-10-13 07:07 | XRay Report ---
XR KUB/Abdomen 1 view CLINICAL HISTORY: worsening abd pain. COMPARISON STUDY: 10/09/2021 TECHNIQUE: Multiple supine radiographs FINDINGS: Compared to the previous examination, mildly to moderately dilated, air-filled loops of small bowel a re again seen and essentially unchanged. Paucity of air is seen within the rectum and colon. Findings are again concerning for partial small bowel obstruction. There is no evidence for organomegaly or g ross intra-abdominal mass. No abnormal calcifications are seen along the course of the urinary tracts bilaterally. No acute osseous pathology. IMPRESSION: 1. Radiographic findings again most characteristic of partial small bowel obstruction which is not im proved since the previous study. ACT 112: Negative or not required by law. Electronically signed by: Juni De Anda M.D. 10/13/2021 7:06 AM
--- NOTE | 2021-10-13 07:46 | Pharmacy Report ---
Pharmacy PN Initial Consult - Date of Service October 13, 2021 - Scope Pharmacy has been consulted to manage parenteral nutrition orders and order appropriate labs. As part of the Nutrition Support Team guidelines, pharmacy will work in conjunction with dietary when determining the patients caloric needs. - Subjective The patient is a 56 year old M admitted on 10/04/21 20:42 for SBO, CHOLECYSTITIS. Patient is to receive parenteral nutrition for prolonged NPO status secondary to SBO. POD #3 exploratory laparotomy. - Objective Height: 5 ft 10 in Weight: 94 kg Intake & Output (Last 24Hrs): Intake & Output 10/11/21 10/12/21 10/13/21 10/14/21 06:59 06:59 06:59 06:59 Intake Total 2836.000 / 2836.000 3163.333 / 3163.333 2068.667 / 2068.667 Output Total 2250 / 2250 1974 / 19740 / 2250 Balance 586.000 / 414.816 6474.333 / 1188.333 -181.333 / -181.333 Weight 94.6 kg 94.6 kg 94 kg Laboratory Data (Last 24 Hrs):: 10/12/21 10/13/21 06:17 06:01 Sodium 136 133 L Potassium 3.7 3.7 Chloride 102 102 Carbon Dioxide 29 26 BUN 5 L 9 Creatinine 0.85 0.65 Glucose 109 H 102 H Calcium 7.7 L 7.6 L Phosphorus 1.9 L 2.3 L Magnesium 1.7 1.8 Nutrition Assessment:: Please refer to the Notes section of the EMR for 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 - Assessment * PN consult received on 10/11/21, held that day due to significant hypophosphatemia (1.3 mg/dL) * Phos subsequently repleted, 1.9 on 10/12 - discussed with provider and okay to start PN * Prior to PN being initiated, patient maintained on 100 mL/hr of D5-1/2 NS + 20 KCl, which provided ~120 g dextrose * Initiated PPN at max volume of 2 L (bag limitation) to provide 100 g dextrose/day * Electrolytes largely stable * Phos still below normal range but trending up (2.3 mg/dL) * Will adjust electrolytes as needed, limited by osmolarity given PPN * Fairly balanced I/Os yesterday * Thiamine added to bag due to refeeding risk - Plan For day 1 of PN administration yesterday, the following was ordered: Macronutrients Amino acids 85 grams/day Dextrose 100 grams/day Lipids 40 grams/day Micronutrients Combined electrolytes 20 mL - contains 35 mEq Na, 20 meq K, 4.5 mEq Ca, 5 mEq Mg, 35 mEq Cl, 29.5 mEq acetate per 20 mL Sodium phosphate 30 MMol Sodium chloride 60 mEq Potassium chloride 60 mEq Magnesium sulfate 4.06 mEq Multivitamins 10 mL Trace Elements 10 mL Additional additives: thiamine 100 mg Total volume 2097 mL to be infused over 24 hrs will provide 1080 kcal/day Final osmolarity 853 mOsm/L (maximum for PPN is 900 mOsm/L) Labs to be ordered per PN order protocol Pharmacy will follow and adjust parenteral nutrition orders on a daily basis. Thank you.
[2021-10-13] MEDS: FAMOTIDINE 20 MG in SYRINGE 3 ML IV SCH ×2 (10:55→22:16)
--- NOTE | 2021-10-13 14:24 | Hospitalist Progress Note ---
Date of Service October 13, 2021 Assessment & Plan (1) Small bowel obstruction: Plan: Postop day 3 status post exploratory laparotomy. NG tube still in situ, draining bilious liquid. Bowel function still has not returned fully, Passing flatus Will continue IV fluids, antiemetics. Appreciate general surgery commendations. KUB Shows evidence of ileus Continue parenteral nutrition (2) Cholecystitis: Plan: Chronic cholecystitis, no acute cholecystitis appreciated. . (3) Bradycardia: Plan: Bradycardia with heart rate as low as 30s overnight, patient asymptomatic Metoprolol held indefinitely Cardiology consulted suspicious for Mobitz 1 without significant purkinje disease. No pacer indicated at this time. - Lyme serology negative (4) Hypertension: Plan: - Metoprolol discontinued with bradycardia as above (5) Atrial fibrillation: Plan: Confirmed history of this with [facility] Patient has a history of paroxysmal A. fib Has been prescribed Eliquis and metoprolol for A. fib (previously reported metoprolol was for his thyroid this is incorrect) but patient takes his own med and cell and is very poorly compliant with these medications. While Eliquis is on order takes this rarely throughout the week. Metoprolol held for concern of heart block above - [id number] 1, and sinus rhythm will defer anticoagulation but patient is agreeable to mobile telemetry once discharged to quantify A. fib burden if occult. (6) Hypothyroidism: Plan: Synthroid 75 mcg daily Repeat TSH normal (7) Vitamin D deficiency: Plan: Hold 25 mcg daily supplement while n.p.o. Admission and Anticipated Discharge Date Admission Date: October 04, 2021 Subjective Patient seen and examined today, passing flatus, however has not had a bowel movement Review of Systems Review of Systems: All systems reviewed are negative, apart from the ones contained in the history. Physical Exam Physical Exam: The patient is awake, alert and oriented 3, well developed and well nourished, normocephalic and atraumatic, lying in bed and in no acute distress. HEENT--PERRL, EOMI, mucous membranes and oropharynx mildly dry Neck--supple. No JVD. No bruits. Thyroid normal, trachea midline, no adenopathy. Heart--normal S1 and S2. No murmurs, rubs or gallops. Lungs--clear bilaterally, no respiratory distress, no accessory muscle use. Abdomen--distended Extremities--no cyanosis or clubbing. No edema. Dermatologic--normal skin turgor, normal color, no abnormal lymph nodes, no rash. Neurologic--cranial nerves II through XII grossly intact. Rheumatologic--normal range of motion. Psychiatric--normal affect. Results & Data Results & Data ([facility]) Vital Signs (Past 12 Hours) Vital Signs Temp Pulse Pulse Resp BP Pulse Ox 10/13/21 11:58 98.8 F 53 L 20 153/88 H 91 10/13/21 07:44 99.0 F 52 L 18 166/78 H 91 10/13/21 07:38 51 L 10/13/21 03:30 99.1 F 54 L 20 144/87 H 92 PG Care Time/CCT Total # of Minutes Spent Total Time Spent with Patient: Total time spent is greater than 50% in coordination of care (as documented) at patient's floor/unit and/or counseling patient: Coding Level of Care Code 11695 Subseq Hosp Care Lvl 2 Diagnoses Small bowel obstruction K56.609 Cholecystitis K81.9 Bradycardia R00.1 Hypertension I10 Atrial fibrillation I48.91 Hypothyroidism E03.9 Vitamin D deficiency E55.9 Time Spent (min) 35
[2021-10-13] MEDS ORDERED: PERIPHERAL TPN IV SCH (16:00)
[2021-10-13] MEDS ORDERED: AMINO ACIDS 4.25% IV SCH (16:00)
[2021-10-13] MEDS ORDERED: D5W IV SCH (16:00)
[2021-10-13] MEDS: CLINOLIPID 20% IV FAT EMULSION 100 ML IV SCH ×2 (16:44→19:29)
[2021-10-14] MEDS: MoRPHine SULFATE 4 MG/ML 1 ML CARP\\VIAL IV PRN ×4 (02:35→19:32)
[2021-10-14 06:14] LABS: Hematocrit (blood only) 40.8 % (42-52); Hemoglobin 14.4 g/dL (14.0-18.0); Mean Corpuscular Hemoglobin 30.2 pg (25-34); Mean Corpuscular Hgb Conc 35.3 g/dL (32-36); Mean Corpuscular Volume 85.5 fL (80-100); Mean Platelet Volume 10.3 fL (7.4-10.4); Platelet Count 210 K/uL (130-400); RDW Coefficient of Variation 12.6 % (11.5-14.5); Red Blood Count 4.77 M/uL (4.7-6.1); White Blood Count 6.53 K/uL (4.8-10.8)
[2021-10-14 06:31] LABS: BUN Creatinine Ratio 19.7 (10-20); Calcium 7.9 mg/dl (8.5-10.1); Creatinine Clr Calc Pharmacy 157.5 ml/min; Est GFR (African American) 130.3 ml/min; Est GFR (Non-African American) 112.4 ml/min; Magnesium 2.1 mg/dl (1.7-2.4); Phosphorus 2.4 mg/dl (2.5-4.9); Potassium 3.7 mmol/L (3.5-5.1)
[2021-10-14] MEDS: ONDANSETRON INJ 2 MG/ML 2 ML VIAL IV PRN (07:58)
[2021-10-14] MEDS ORDERED: POLYETHYLENE (MIRALAX) 17 GM PACK PO PRN (09:44)
--- NOTE | 2021-10-14 09:44 | Surgery Progress Note ---
Date of Service October 14, 2021 Assessment & Plan (1) Small bowel obstruction: Plan: Postop day #1 status post exploratory laparotomy with lysis of adhesions Afebrile, vital signs stable Moderate postop pain at midline incision controlled with IV morphine and IV Tylenol No nausea no vomiting NG tube output with 400 cc since surgery Passing some flatus Plan: Continue pain management as needed, will start oral pain medication once NG tube removed Continue NG tube to LIS, possibly discontinue tomorrow and start clear liquids Continue IV fluids while npo Continue current medical management Incentive spirometry and SCDs for DVT prophylaxis OOB to chair and ambulate in room Dr. Wood covering this weekend Dr. Britt has seen and examined pt, agrees with above. 10/14/2021 9:42AM, Dr. Britt Postop day #4 status post exploratory laparotomy with lysis of adhesions Afebrile, vital signs stable, passe BM, plan, pull out NG tube, clear diet, OOB will F/U , possible D/C tomorrow, Admission and Anticipated Discharge Date Admission Date: October 04, 2021 Subjective Patient seen and examined today, passing flatus, however has not had a bowel movement 10/14/2021 9:40AM, Dr. Britt F/U S/P exp lpa, lysis of adhesion for SBO, POD 4 pt is doing fine, passed 4 times BM today, no abdominal pain, no nausea, no fever, NG 650ml, Review of Systems Constitutional: no fever and no chills Eyes: no problem reported Ear, Nose, Mouth, Throat: no problem reported Respiratory: no cough and no dyspnea Cardiovascular: no chest pain Gastrointestinal: + abdominal pain, + nausea, + vomiting and + change in bowel habits Genitourinary: no dysuria Musculoskeletal: + back pain Integumentary: no rash and no lesions Neurologic: no localized weakness and no generalized weakness Psychiatric: no behavioral changes Physical Exam Constitutional: WD/WN, vitals as above Eyes: PERRL, conjunctivae normal, anicteric sclerae Neck: trachea midline, no thyromegaly Respiratory: normal respiratory effort, lungs clear to auscultation Cardiovascular: RRR, no murmur, no edema Gastrointestinal (Abdomen): soft, mild tenderness at incision site, no distend, BS +, Musculoskeletal: no cyanosis or clubbing, extremities motor strength 5/5 Neurologic: patellar DTR's 2+ bilat, sensation intact Psychiatric: A+Ox3, euthymic affect Results & Data ([facility]) Vital Signs (Past 12 Hours) Vital Signs Temp Pulse Pulse Pulse Resp BP Pulse Ox 10/14/21 08:02 37.2 C 55 L 20 161/101 H 91 10/14/21 00:00 56 L 10/13/21 23:00 37.3 C 58 L 20 165/95 H 92 Laboratory Results Abnormal lab results 10/13/21 10/13/21 10/14/21 Range/Units 11:54 23:02 05:31 Hct 40.8 L (42-52) % Sodium (136-145) mmol/L Glucose (70-99(Fasting)) mg/dl POC Glucose 103 H 100 H (70-99) mg/dl Calcium (8.5-10.1) mg/dl Phosphorus (2.5-4.9) mg/dl 10/14/21 Range/Units 05:31 Hct (42-52) % Sodium 133 L (136-145) mmol/L Glucose 104 H (70-99(Fasting)) mg/dl POC Glucose (70-99) mg/dl Calcium 7.9 L (8.5-10.1) mg/dl Phosphorus 2.4 L (2.5-4.9) mg/dl
[2021-10-14] MEDS: FAMOTIDINE 20 MG in SYRINGE 3 ML IV SCH ×2 (12:44→22:08)
--- NOTE | 2021-10-14 13:14 | Hospitalist Progress Note ---
Date of Service October 14, 2021 Assessment & Plan (1) Small bowel obstruction: Plan: Postop day 4 status post exploratory laparotomy. Patient has had multiple bowel movements, passing flatus also NG tube will be removed, will be started on clear liquid diet and advance as tolerated Will still keep parenteral nutrition until oral intake improves Appreciate general surgery commendations. (2) Cholecystitis: Plan: Chronic cholecystitis, no acute cholecystitis appreciated. . (3) Bradycardia: Plan: Bradycardia with heart rate as low as 30s overnight, patient asymptomatic Metoprolol held indefinitely Cardiology consulted suspicious for Mobitz 1 without significant purkinje disease. No pacer indicated at this time. - Lyme serology negative (4) Hypertension: Plan: - Metoprolol discontinued with bradycardia as above (5) Atrial fibrillation: Plan: Confirmed history of this with [facility] Patient has a history of paroxysmal A. fib Has been prescribed Eliquis and metoprolol for A. fib (previously reported metoprolol was for his thyroid this is incorrect) but patient takes his own med and cell and is very poorly compliant with these medications. While Eliquis is on order takes this rarely throughout the week. Metoprolol held for concern of heart block above - [id number], and sinus rhythm will defer anticoagulation but patient is agreeable to mobile telemetry once discharged to quantify A. fib burden if occult. (6) Hypothyroidism: Plan: Synthroid 75 mcg daily Repeat TSH normal (7) Vitamin D deficiency: Plan: Hold 25 mcg daily supplement while n.p.o. Admission and Anticipated Discharge Date Admission Date: October 04, 2021 Subjective patient seen and examined, has had multiple bowel movements Review of Systems Review of Systems: All systems reviewed are negative, apart from the ones contained in the history. Physical Exam Physical Exam: The patient is awake, alert and oriented 3, well developed and well nourished, normocephalic and atraumatic, lying in bed and in no acute distress. HEENT--PERRL, EOMI, mucous membranes and oropharynx mildly dry Neck--supple. No JVD. No bruits. Thyroid normal, trachea midline, no adenopathy. Heart--normal S1 and S2. No murmurs, rubs or gallops. Lungs--clear bilaterally, no respiratory distress, no accessory muscle use. Abdomen--distended Extremities--no cyanosis or clubbing. No edema. Dermatologic--normal skin turgor, normal color, no abnormal lymph nodes, no rash. Neurologic--cranial nerves II through XII grossly intact. Rheumatologic--normal range of motion. Psychiatric--normal affect. Results & Data Results & Data ([facility]) Vital Signs (Past 12 Hours) Vital Signs Temp Pulse Resp BP Pulse Ox 10/14/21 11:23 98.6 F 56 L 18 159/91 H 94 10/14/21 08:02 99.0 F 55 L 20 161/101 H 91 PG Care Time/CCT Total # of Minutes Spent Total Time Spent with Patient: Total time spent is greater than 50% in coordination of care (as documented) at patient's floor/unit and/or counseling patient: Coding Level of Care Code 03234 Subseq Hosp Care Lvl 2 Diagnoses Small bowel obstruction K56.609 Cholecystitis K81.9 Bradycardia R00.1 Hypertension I10 Atrial fibrillation I48.91 Hypothyroidism E03.9 Vitamin D deficiency E55.9 Time Spent (min) 35
[2021-10-14] MEDS ORDERED: PERIPHERAL TPN IV SCH (16:00)
[2021-10-14] MEDS ORDERED: AMINO ACIDS 4.25% IV SCH (16:00)
[2021-10-14] MEDS ORDERED: D5W IV SCH (16:00)
[2021-10-14] MEDS: CLINOLIPID 20% IV FAT EMULSION 100 ML IV SCH ×2 (17:17→19:32)
[2021-10-15] MEDS: MoRPHine SULFATE 4 MG/ML 1 ML CARP\\VIAL IV PRN (01:14)
[2021-10-15 08:16] LABS: Hemoglobin 14.3 g/dL (14.0-18.0); Mean Corpuscular Hemoglobin 28.9 pg (25-34); Mean Corpuscular Volume 84.8 fL (80-100); Mean Platelet Volume 10.4 fL (7.4-10.4); Platelet Count 249 K/uL (130-400); RDW Coefficient of Variation 12.9 % (11.5-14.5); RDW Standard Deviation 39.8 fL (36.4-46.3); Red Blood Count 4.95 M/uL (4.7-6.1); White Blood Count 7.66 K/uL (4.8-10.8)
[2021-10-15 08:53] LABS: Albumin Level 3.3 gm/dl (3.4-5.0); BUN Creatinine Ratio 19.4 (10-20); Bilirubin Direct 0.1 mg/dl (0-0.2); Bilirubin,Total 0.6 mg/dl (0.2-1.0); Calcium 8.3 mg/dl (8.5-10.1); Creatinine Clr Calc Pharmacy 130.6 ml/min; Est GFR (African American) 121.7 ml/min; Phosphorus 2.8 mg/dl (2.5-4.9); Potassium 4.2 mmol/L (3.5-5.1); Total Protein 6.1 gm/dl (6.0-8.3)
[2021-10-15] MEDS: oxyCODONE/ACETAMINOPHEN 5mg/325mg TAB PO PRN ×3 (09:12→22:09)
[2021-10-15] MEDS: FAMOTIDINE 20 MG in SYRINGE 3 ML IV SCH ×2 (10:51→22:09)
--- NOTE | 2021-10-15 12:14 | Surgery Progress Note ---
Date of Service October 15, 2021 Assessment & Plan (1) Small bowel obstruction: Plan: Postop day #1 status post exploratory laparotomy with lysis of adhesions Afebrile, vital signs stable Moderate postop pain at midline incision controlled with IV morphine and IV Tylenol No nausea no vomiting NG tube output with 400 cc since surgery Passing some flatus Plan: Continue pain management as needed, will start oral pain medication once NG tube removed Continue NG tube to LIS, possibly discontinue tomorrow and start clear liquids Continue IV fluids while npo Continue current medical management Incentive spirometry and SCDs for DVT prophylaxis OOB to chair and ambulate in room Dr. Wood covering this weekend Dr. Britt has seen and examined pt, agrees with above. 10/14/2021 9:42AM, Dr. Britt Postop day #4 status post exploratory laparotomy with lysis of adhesions Afebrile, vital signs stable, passe BM, plan, pull out NG tube, clear diet, OOB will F/U , possible D/C tomorrow, 10/15/2021 12:11PM Dr. Britt SBO resolved, soft diet, pt can be discharged today or tomorrow, he can take a shower tomorrow, no heavy lifting > 15 LBS for 4-6 weeks, sign off today, please call with questions [phone], F/U me 2-3 weeks, Thanks, Admission and Anticipated Discharge Date Admission Date: October 04, 2021 Subjective patient seen and examined, has had multiple bowel movements 10/15/2021 12:09PM Dr. Britt passed BM, no abdominal pain, tolerated clear diet, no vomiting, no fever, Review of Systems Constitutional: no fever and no chills Eyes: no problem reported Ear, Nose, Mouth, Throat: no problem reported Respiratory: no cough and no dyspnea Cardiovascular: no chest pain Gastrointestinal: + abdominal pain, + nausea, + vomiting and + change in bowel habits Genitourinary: no dysuria Musculoskeletal: + back pain Integumentary: no rash and no lesions Neurologic: no localized weakness and no generalized weakness Psychiatric: no behavioral changes Physical Exam Constitutional: WD/WN, vitals as above Eyes: PERRL, conjunctivae normal, anicteric sclerae Neck: trachea midline, no thyromegaly Respiratory: normal respiratory effort, lungs clear to auscultation Cardiovascular: RRR, no murmur, no edema Gastrointestinal (Abdomen): soft, NT, ND, incision heals well, no redness, BS + Musculoskeletal: no cyanosis or clubbing, extremities motor strength 5/5 Neurologic: patellar DTR's 2+ bilat, sensation intact Psychiatric: A+Ox3, euthymic affect Results & Data ([facility]) Vital Signs (Past 12 Hours) Vital Signs Temp Pulse Pulse Pulse Resp BP BP 10/15/21 11:57 36.7 C 57 L 19 160/98 H 10/15/21 07:42 36.8 C 56 L 18 160/100 H 10/15/21 06:23 50 L 10/15/21 04:24 37.0 C 53 L 18 143/90 H Pulse Ox 10/15/21 11:57 93 10/15/21 07:42 92 10/15/21 06:23 10/15/21 04:24 93 Laboratory Results Abnormal lab results 10/15/21 Range/Units 07:07 Sodium 135 L (136-145) mmol/L Calcium 8.3 L (8.5-10.1) mg/dl Alkaline Phosphatase 116 H (34-104) U/L Albumin 3.3 L (3.4-5.0) gm/dl
--- NOTE | 2021-10-15 15:27 | Hospitalist Progress Note ---
Date of Service October 15, 2021 Assessment & Plan (1) Small bowel obstruction: Plan: Postop day 5 status post exploratory laparotomy. Patient has had multiple bowel movements, passing flatus also, tolerating clears, will advance NG tube has been removed will discontinue parenteral nutrition Appreciate general surgery commendations. (2) Cholecystitis: Plan: Chronic cholecystitis, no acute cholecystitis appreciated. . (3) Bradycardia: Plan: Bradycardia with heart rate as low as 30s overnight, patient asymptomatic Metoprolol held indefinitely Cardiology consulted suspicious for Mobitz 1 without significant purkinje disease. No pacer indicated at this time. - Lyme serology negative (4) Hypertension: Plan: - Metoprolol discontinued with bradycardia as above (5) Atrial fibrillation: Plan: Confirmed history of this with [facility] Patient has a history of paroxysmal A. fib Has been prescribed Eliquis and metoprolol for A. fib (previously reported metoprolol was for his thyroid this is incorrect) but patient takes his own med and cell and is very poorly compliant with these medications. While Eliquis is on order takes this rarely throughout the week. Metoprolol held for concern of heart block above - [id number] 1, and sinus rhythm will defer anticoagulation but patient is agreeable to mobile telemetry once discharged to quantify A. fib burden if occult. (6) Hypothyroidism: Plan: Synthroid 75 mcg daily Repeat TSH normal (7) Vitamin D deficiency: Plan: Hold 25 mcg daily supplement while n.p.o. Plan: d/c in the next 24 hrs Admission and Anticipated Discharge Date Admission Date: October 04, 2021 Subjective patient seen and examined, had multiple episodes of diarrhea, tolerating clears Review of Systems Review of Systems: All systems reviewed are negative, apart from the ones contained in the history. Physical Exam Physical Exam: The patient is awake, alert and oriented 3, well developed and well nourished, normocephalic and atraumatic, lying in bed and in no acute distress. HEENT--PERRL, EOMI, mucous membranes and oropharynx mildly dry Neck--supple. No JVD. No bruits. Thyroid normal, trachea midline, no adenopathy. Heart--normal S1 and S2. No murmurs, rubs or gallops. Lungs--clear bilaterally, no respiratory distress, no accessory muscle use. Abdomen--distended Extremities--no cyanosis or clubbing. No edema. Dermatologic--normal skin turgor, normal color, no abnormal lymph nodes, no rash. Neurologic--cranial nerves II through XII grossly intact. Rheumatologic--normal range of motion. Psychiatric--normal affect. Results & Data Results & Data ([facility]) Vital Signs (Past 12 Hours) Vital Signs Temp Pulse Pulse Pulse Resp BP BP 10/15/21 11:57 98.1 F 57 L 19 160/98 H 10/15/21 07:42 98.2 F 56 L 18 160/100 H 10/15/21 06:23 50 L 10/15/21 04:24 98.6 F 53 L 18 143/90 H Pulse Ox 10/15/21 11:57 93 10/15/21 07:42 92 10/15/21 06:23 10/15/21 04:24 93 PG Care Time/CCT Total # of Minutes Spent Total Time Spent with Patient: Total time spent is greater than 50% in coordination of care (as documented) at patient's floor/unit and/or counseling patient: Coding Level of Care Code 00208 Subseq Hosp Care Lvl 2 Diagnoses Small bowel obstruction K56.609 Cholecystitis K81.9 Bradycardia R00.1 Hypertension I10 Atrial fibrillation I48.91 Hypothyroidism E03.9 Vitamin D deficiency E55.9 Time Spent (min) 35
[2021-10-16 09:50] LABS: BUN Creatinine Ratio 13.2 (10-20); Calcium 8.8 mg/dl (8.5-10.1); Creatinine Clr Calc Pharmacy 103.3 ml/min; Est GFR (African American) 109.6 ml/min; Est GFR (Non-African American) 94.5 ml/min; Potassium 4.1 mmol/L (3.5-5.1)
[2021-10-16] MEDS: oxyCODONE/ACETAMINOPHEN 5mg/325mg TAB PO PRN (11:13)
[2021-10-16] MEDS: FAMOTIDINE 20 MG in SYRINGE 3 ML IV SCH (11:38)
--- NOTE | 2021-10-16 12:30 | Discharge Summary ---
Date of Service October 16, 2021 Admission HPI Per Admitting Provider The patient is a 56-year-old male resident of [facility], with a past medical history including hypothyroidism, hypertension, previous concerns regarding possible atrial fibrillation which have since been discounted. He presents to the emergency department with symptoms as noted above. Work-up in the emergency department included a CT scan of abdomen pelvis which showed a partial small bowel obstruction left lower quadrant likely secondary to adhesions, and cholecystitis. Surgery was contacted by the ED, who requested that the patient be admitted to medical service. Principal Diagnosis bowel obstruction Discharge Exam The patient is awake, alert and oriented 3, well developed and well nourished, normocephalic and atraumatic, lying in bed and in no acute distress. HEENT--PERRL, EOMI, mucous membranes and oropharynx mildly dry Neck--supple. No JVD. No bruits. Thyroid normal, trachea midline, no adenopa thy. Heart--normal S1 and S2. No murmurs, rubs or gallops. Lungs--clear bilaterally, no respiratory distress, no accessory muscle use. Abdomen--distended Extremities--no cyanosis or clubbing. No edema. Dermatologic--normal skin turgor, normal color, no abnormal lymph nodes, no rash. Neurologic--cranial nerves II through XII grossly intact. Rheumatologic--normal range of motion. Psychiatric--normal affect. Discharge Data Allergies Allergy/AdvReac Type Severity Reaction Status Date / Time No Known Allergies Allergy Unverified 10/04/21 17:03 Consultations 10/05/21 07:24 Consult Cardiology Routine 10/06/21 07:20 Consult General Surgery Routine Procedures Performed Operation Date: 10/10/21 10:20 Actual Procedures p Exploratory Laparotomy(Not Applicable) - Daniella Britt MD Ordered Studies 10/04/21 16:23 CT abd pelvis IV con only Stat 10/05/21 07:34 US gallbladder Routine Hospital Course (1) Small bowel obstruction: Postop day 6 status post exploratory laparotomy. Patient has had multiple bowel movements, passing flatus also, tolerating clears, will advance NG tube has been removed will discontinue parenteral nutrition Appreciate general surgery commendations. (2) Cholecystitis: Chronic cholecystitis, no acute cholecystitis appreciated. . (3) Bradycardia: Bradycardia with heart rate as low as 30s overnight, patient asymptomatic Metoprolol held indefinitely Cardiology consulted suspicious for Mobitz 1 without significant purkinje disease. No pacer indicated at this time. - Lyme serology negative (4) Hypertension: - Metoprolol discontinued with bradycardia as above (5) Atrial fibrillation: Confirmed history of this with [facility] Patient has a history of paroxysmal A. fib Has been prescribed Eliquis and metoprolol for A. fib (previously reported metoprolol was for his thyroid this is incorrect) but patient takes his own med and cell and is very poorly compliant with these medications. While Eliquis is on order takes this rarely throughout the week. Metoprolol held for concern of heart block above - [id number] 1, and sinus rhythm will defer anticoagulation but patient is agreeable to mobile telemetry once discharged to quantify A. fib burden if occult. (6) Hypothyroidism: Synthroid 75 mcg daily Repeat TSH normal (7) Vitamin D deficiency: Hold 25 mcg daily supplement while n.p.o. d/c in the next 24 hrs Total Time Total Time Spent Total Time Spent (In Minutes): 35 Discharge Plan Discharge Items [facility] Reason For Visit: SBO, CHOLECYSTITIS Discharge Diagnosis: SBO Chronic cholecystitis Activity: Per Instructions section Non-emergency contact: Primary Care Provider Call non-emergency contact if: you have any medication questions Follow-up/Referrals: Danielle NUÑEZ [Primary Care Provider] - Diet: Regular Addtl Attending Provider Instructions: please make appointment to follow up with your PCP [employer] Provider Instructions: Post-Surgical ~Discharge Instructions Activity Recommendations: - lifting limitation: (10 pounds for 6 weeks), - exercise/sex/sports limit: (nonstrenuous for 6 weeks), - driving or machine use limit: (not until pain free), - Shower/bathe limit: (may shower) Diet: - Resume previous diet SPECIAL CARE INSTRUCTIONS: - May shower. Let water run over area and pat dry. - Surgical sarah will need removed in 14 days. - wear abdominal binder for support daily - Call the surgeon's office with any questions or concerns - - (ex. temperature higher than 101 degrees F, excessive bleeding or pain). MEDICATIONS: - Resume previous medications unless instructed otherwise by your surgeon. - May alternate extra strength Tylenol and Ibuprofen as needed for mild to moderate pain - 650 mg Tylenol every 6 hours as needed - Ibuprofen 600 mg every 6 hours as needed (take with food) FOLLOW UP VISIT: - If not already scheduled, please call the office to schedule a two week follow-up appointment. Office number Pending Studies at Discharge: No Stand-Alone Forms: [facility] Skilled Items Patient informed of condition?: Yes Discharge Level of Care: Other Communicable Disease: No Discharge Prognosis: Stable Lines: None Urinary Catheter: No Medications and DC Order Prescriptions: Continued levothyroxine 75 mcg Tablet 75 mcg PO DAILY RF: 0 metoprolol tartrate 50 mg Tablet 50 mg PO BID RF: 0 cholecalciferol (vitamin D3) [Vitamin D3] 25 mcg (1,000 unit) Tablet 25 mcg PO DAILY RF: 0 Eliquis 5 mg Tablet 5 mg PO BID RF: 0 Discharge Orders: Discharge Order (Routine); Ordered 10/16/21 Ordered By: Carlos Etienne Admission Data Admit Date/Time: 10/04/21 20:42 Attending Provider: Carlos Etienne Admit Provider: Emeka Mosher [facility] Other Providers: James Orellana ; Mauricio Wilcox Other Interventions: Discharge Summary Assessment (RN) Last Done: 10/16/21 12:25 Coding Level of Care Code D/C DAY MANAGEMENT >30 MINS Diagnoses Small bowel obstruction K56.609 Cholecystitis K81.9 Bradycardia R00.1 Hypertension I10 Atrial fibrillation I48.91 Hypothyroidism E03.9 Vitamin D deficiency E55.9 Time Spent (min) 35
--- NOTE | 2021-10-16 13:10 | Surgery Progress Note ---
Date of Service October 16, 2021 Assessment & Plan (1) Small bowel obstruction: Plan: he is doing well. Advance diet as tolerated. He may be discharged home later today. Follow up with Dr. Britt as previously scheduled. We will sign off for now. Please call with questions. Admission and Anticipated Discharge Date Admission Date: October 04, 2021 Subjective Postop day 6 status small bowel obstruction. He is doing well. He is tolerated clears. He is having bowel movements Physical Exam Constitutional: WD/WN, vitals as above Gastrointestinal (Abdomen): Inspection/Auscultation: abdomen normal to inspe ction, + abdomen distended ( Slight) and + abdominal surgical incision ( clean dry and intact with sarah) Percussion/Palpation: abdomen soft; abdomen nontender, no guarding and abdomen not rigid Musculoskeletal: Extremities: no cyanosis and no clubbing Skin: no rashes, warm and dry Psychiatric: A+Ox3, euthymic affect Results & Data ([facility]) Vital Signs (Past 12 Hours) Vital Signs Temp Pulse Resp BP BP Pulse Ox 10/16/21 12:25 36.6 C 55 L 19 146/89 H 137/83 93 10/16/21 12:23 36.6 C 55 L 19 146/89 H 137/83 93 10/16/21 11:34 36.6 C 55 L 19 146/89 H 93 10/16/21 08:01 36.9 C 56 L 20 137/83 94 10/16/21 03:24 36.9 C 52 L 18 132/84 96
== END 2021-10-16 15:02 | DRG 337 ==
LOC: ED 15:56 → 2W 20:42 → SUATTDRO 20:42 → 2W 22:04
DX: D17.5 Benign lipomatous neoplasm of intra-abdominal organs; Z79.890 Hormone replacement therapy; K81.1 Chronic cholecystitis; K56.50 Intestinal adhesions [bands], unspecified as to partial versus complete obstruction; E55.9 Vitamin D deficiency, unspecified; Z79.01 Long term (current) use of anticoagulants; E03.9 Hypothyroidism, unspecified; R00.1 Bradycardia, unspecified; I10 Essential (primary) hypertension; I44.1 Atrioventricular block, second degree